=== PATIENT | male | born 1980 | race Hispanic/Latino ===

== ENCOUNTER 2018-03-20 13:06 | Emergency (ER) | payer SELFPAY ==
--- NOTE | 2018-03-20 14:24 | RAD REPORT ---
EXAM DESCRIPTION: RAD - Abdomen Acute Series - 03/20/2018 2:14 pm CLINICAL HISTORY: Abdominal pain FINDINGS: Free air is not seen beneath the diaphragm. The lungs appear clear. The bowel gas pattern is unremarkable. Round calcifications in the pelvis may represent phleboliths
[2018-03-20] MEDS ORDERED: MAGNE/ALUM HYDROXD 30 ML UCUP ONE (14:29)
[2018-03-20] MEDS ORDERED: PANTOPRAZOLE 40MG TABLET PO ONE (14:29)
[2018-03-20] MEDS ORDERED: LIDOCAINE VISCOUS 2% SOLN 15 ML UDC ONE (14:29)
--- NOTE | 2018-03-20 15:46 | EDPHYS ---
Physician Documentation [facility] Name: Francisco Brady Age: 37 yrs Sex: Male : 1980 Arrival Date: 03/20/2018 Time: 13:11 Bed 27 Private MD: None, None ED Physician Mukul Early HPI: 03/20 14:07 This 37 yrs old Male presents to ER via Ambulatory with complaints of snw Shortness Of Breath, Decreased Appetite. 14:07 The patient has shortness of breath at rest. Onset: The symptoms/episode began/occurred snw suddenly, Saturday post heavy drinking over holiday weekend. Duration: The symptoms are continuous. Associated signs and symptoms: Pertinent positives: chest pain, vomiting, Pertinent negatives: hemoptysis, hematemesis, melena. Severity of symptoms: At their worst the symptoms were moderate in the emergency department the symptoms are unchanged. The patient has experienced similar episodes in the past. The patient has not recently seen a physician. pt reports he has been counseled before to decrease ETOH. Dx with Gerd. States this weekend he had a lot of ETOH. Historical: - Allergies: 13:28 No Known Allergies; aj - Home Meds: 13:28 None [Active]; aj - PMHx: 13:28 GERD; aj - PSHx: 13:28 None; aj - Immunization history:: Adult Immunizations up to date. - Social history:: Smoking status: Patient/guardian denies using tobacco, Patient uses alcohol, weekly. patient/guardian reports recent binge of alcohol consumption. - Ebola Screening: : No symptoms or risks identified at this time. ROS: 14:07 Constitutional: Negative for fever, chills, and weight loss, Eyes: Negative for injury, snw pain, redness, and discharge, ENT: Negative for injury, pain, and discharge, Neck: Negative for injury, pain, and swelling, Respiratory: Negative for shortness of breath, cough, wheezing, and pleuritic chest pain, Back: Negative for injury and pain, : Negative for injury, bleeding, discharge, and swelling, MS/Extremity: Negative for injury and deformity, Skin: Negative for injury, rash, and discoloration, Neuro: Negative for headache, weakness, numbness, tingling, and seizure. 14:07 Neck: Negative for injury, pain, and swelling. 14:07 Cardiovascular: Positive for chest pain. 14:07 Abdomen/GI: Positive for abdominal pain, nausea, vomiting, and diarrhea. Exam: 14:07 Constitutional: This is a well developed, well nourished patient who is awake, alert, snw and in no acute distress. Head/Face: Normocephalic, atraumatic. Eyes: Pupils equal round and reactive to light, extra-ocular motions intact. Lids and lashes normal. Conjunctiva and sclera are non-icteric and not injected. Cornea within normal limits. Periorbital areas with no swelling, redness, or edema. ENT: Nares patent. No nasal discharge, no septal abnormalities noted. Tympanic membranes are normal and external auditory canals are clear. Oropharynx with no redness, swelling, or masses, exudates, or evidence of obstruction, uvula midline. Mucous membranes moist. Neck: Trachea midline, no thyromegaly or masses palpated, and no cervical lymphadenopathy. Supple, full range of motion without nuchal rigidity, or vertebral point tenderness. No Meningismus. Chest/axilla: Normal chest wall appearance and motion. Nontender with no deformity. No lesions are appreciated. Cardiovascular: Regular rate and rhythm with a normal S1 and S2. No gallops, murmurs, or rubs. Normal PMI, no JVD. No pulse deficits. Respiratory: Lungs have equal breath sounds bilaterally, clear to auscultation and percussion. No rales, rhonchi or wheezes noted. No increased work of breathing, no retractions or nasal flaring. Abdomen/GI: Soft, non-tender, with normal bowel sounds. No distension or tympany. No guarding or rebound. No evidence of tenderness throughout. Back: No spinal tenderness. No costovertebral tenderness. Full range of motion. Skin: Warm, dry with normal turgor. Normal color with no rashes, no lesions, and no evidence of cellulitis. MS/ Extremity: Pulses equal, no cyanosis. Neurovascular intact. Full, normal range of motion. Neuro: Awake and alert, GCS 15, oriented to person, place, time, and situation. Cranial nerves II-XII grossly intact. Motor strength 5/5 in all extremities. Sensory grossly intact. Cerebellar exam normal. Normal gait. Vital Signs: 13:28 BP 154 / 96; Pulse 86; Resp 18; Temp 98.1; Pulse Ox 100% on R/A; Weight 73.03 kg; aj Height 5 ft. 6 in. (167.64 cm); Pain 5/10; 14:30 BP 142 / 87; Pulse 72; Resp 15; Pulse Ox 100% on R/A; lk1 15:30 BP 139 / 88; Pulse 69; Resp 15; Pulse Ox 100% on R/A; lk1 13:28 Body Mass Index 25.99 (73.03 kg, 167.64 cm) aj MDM: 13:50 Patient medically screened. snw 15:47 Data reviewed: vital signs, nurses notes, lab test result(s), EKG, radiologic studies. snw Counseling: I had a detailed discussion with the patient and/or guardian regarding: the historical points, exam findings, and any diagnostic results supporting the discharge/admit diagnosis, the presence of at least one elevated blood pressure reading (>120/80) during this emergency department visit, radiology results, the need for outpatient follow up, to return to the emergency department if symptoms worsen or persist or if there are any questions or concerns that arise at home. Special discussion: Based on the patient's Hx, exam, and Dx evaluation, there is no indication for emergent surgery or inpatient Tx. It is understood by the patient/guardian that if the Sx's persist or worsen they need to return immediately for re-evaluation. I have referred the patient to see his PCP for further evaluation of high blood pressure. Based on the history and exam findings, there is no indication for further emergent testing or inpatient evaluation. I discussed with the patient/guardian the need to see the glazier structural glass for further evaluation of the symptoms. I discussed with the patient/guardian the need to see the primary care provider for further evaluation of the symptoms. 03/20 13:44 Order name: Abdomen Acute Series XRAY; Complete Time: 14:25 snw 03/20 13:54 Order name: EKG; Complete Time: 13:54 snw 03/20 13:54 Order name: EKG - Nurse/Tech; Complete Time: 14:17 snw Administered Medications: 14:14 Drug: ProTONIX 40 mg Route: PO; lk1 15:00 Follow up: Response: No adverse reaction; Marked relief of symptoms lk1 14:15 Drug: GI Cocktail without - (Maalox Suspension 30 ml, Lidocaine Liquid 2 % 15 lk1 ml) Route: PO; 15:00 Follow up: Response: No adverse reaction; Marked relief of symptoms lk1 Disposition: 22:11 Co-signature as Attending Physician, Mukul Early MD I agree with the assessment and kdr plan of care. Disposition: 03/20/18 15:45 Discharged to Home. Impression: Gastritis, unspecified. - Condition is Stable. - Discharge Instructions: Fat and Cholesterol Restricted Diet, Gastritis, Adult, Hypertension. - Prescriptions for Pepcid 20 mg Oral Tablet - take 1 tablet by ORAL route every 12 hours for 10 days; 20 tablet. - Work release form, Medication Reconciliation Form, Thank You Letter, Antibiotic Education, Prescription Opioid Use form. - Follow up: Private Physician; When: 2 - 3 days; Reason: Recheck today's complaints, Continuance of care, Re-evaluation by your physician. Follow up: Emergency Department; When: As needed; Reason: Worsening of condition. Signatures: Dispatcher [employer] EDMarianne Joiner, RN RN Mukul Edwards MD MD [facility] Eda Marie, TRANSPORTATION MAINTENANCE OPERATOR-C TRANSPORTATION MAINTENANCE OPERATOR-Csnw Nithya Suarez RN RN lk1 Corrections: (The following items were deleted from the chart) 16:04 15:45 03/20/2018 15:45 Discharged to Home. Impression: Gastritis, unspecified. lk1 Condition is Stable. Forms are Medication Reconciliation Form, Thank You Letter, Antibiotic Education, Prescription Opioid Use. Follow up: Private Physician; When: 2 - 3 days; Reason: Recheck today's complaints, Continuance of care, Re-evaluation by your physician. Follow up: Emergency Department; When: As needed; Reason: Worsening of condition. snw
--- NOTE | 2018-03-20 15:46 | ER ---
Nurse's Notes [facility] Name: Francisco Brady Age: 37 yrs Sex: Male : 1980 Arrival Date: 03/20/2018 Time: 13:11 Bed 27 Private MD: None, None Diagnosis: Gastritis, unspecified Presentation: 03/20 13:26 Presenting complaint: Patient states: Epigastric burning and indigestion since aj yesterday. Patient reports he has been seen for this before and DX with GERD. Told to decrease alcohol consumption, patient reports recent binge this weekend. Transition of care: patient was not received from another setting of care. Onset of symptoms was March 19, 2018. Care prior to arrival: None. 13:26 Method Of Arrival: Ambulatory 13:26 Acuity: LIZETH 3 16:04 Risk Assessment: Do you want to hurt yourself or someone else?. Initial Sepsis Screen: lk1 Does the patient meet any 2 criteria? No. Patient's initial sepsis screen is negative. Does the patient have a suspected source of infection? No. Patient's initial sepsis screen is negative. Triage Assessment: 13:28 General: Appears in no apparent distress. comfortable, Behavior is calm, cooperative, aj appropriate for age. Pain: Complains of pain in xyphoid area, mid-sternal area and epigastric area Pain currently is 5 out of 10 on a pain scale. Neuro: Level of Consciousness is awake, alert, obeys commands, Oriented to person, place, time, situation, Appropriate for age. Respiratory: Reports Airway is patent Respiratory effort is even, unlabored, Respiratory pattern is regular, symmetrical, Onset: The symptoms/episode began/occurred gradually, the patient has mild shortness of breath. Derm: Skin is intact, is healthy with good turgor, Skin is pink, warm \T\ dry. normal. Historical: - Allergies: 13:28 No Known Allergies; aj - Home Meds: 13:28 None [Active]; aj - PMHx: 13:28 GERD; aj - PSHx: 13:28 None; aj - Immunization history:: Adult Immunizations up to date. - Social history:: Smoking status: Patient/guardian denies using tobacco, Patient uses alcohol, weekly. patient/guardian reports recent binge of alcohol consumption. - Ebola Screening: : No symptoms or risks identified at this time. Screenin:03 Abuse screen: Denies threats or abuse. Denies injuries from another. Nutritional lk1 screening: No deficits noted. Tuberculosis screening: No symptoms or risk factors identified. Fall Risk None identified. Assessment: 14:00 General: Appears in no apparent distress. Behavior is calm, cooperative, appropriate lk1 for age. Pain: Complains of pain in mid-sternal area and epigastric area Pain currently is 5 out of 10 on a pain scale. Pain: Quality of pain is described as burning. Neuro: Level of Consciousness is awake, alert, obeys commands, Oriented to person, place, time, situation. Cardiovascular: Heart tones S1 S2 present Capillary refill is brisk Patient's skin is warm and dry. Rhythm is regular. Respiratory: Airway is patent Respiratory effort is even, unlabored, Respiratory pattern is regular, symmetrical, Breath sounds are clear bilaterally. GI: No signs and/or symptoms were reported involving the gastrointestinal system. : No signs and/or symptoms were reported regarding the genitourinary system. EENT: No signs and/or symptoms were reported regarding the EENT system. Derm: No signs and/or symptoms reported regarding the dermatologic system. Musculoskeletal: No signs and/or symptoms reported regarding the musculoskeletal system. Vital Signs: 13:28 BP 154 / 96; Pulse 86; Resp 18; Temp 98.1; Pulse Ox 100% on R/A; Weight 73.03 kg; aj Height 5 ft. 6 in. (167.64 cm); Pain 5/10; 14:30 BP 142 / 87; Pulse 72; Resp 15; Pulse Ox 100% on R/A; lk1 15:30 BP 139 / 88; Pulse 69; Resp 15; Pulse Ox 100% on R/A; lk1 13:28 Body Mass Index 25.99 (73.03 kg, 167.64 cm) aj ED Course: 13:11 Patient arrived in ED. mr 13:11 None, None is Private Physician. mr 13:28 Triage completed. aj 13:28 Arm band placed on left wrist. Patient placed in an exam room. aj 13:41 Eda Marie F[facility]-C [facility]. snw 13:41 Mukul Early MD is Attending Physician. snw 14:00 X-ray completed. Patient tolerated procedure well. Patient moved to radiology via tm4 wheelchair. 14:12 Patient moved back from radiology. jb2 14:12 Abdomen Acute Series XRAY In Process Unspecified. EDMS 14:26 Nithya Suarez, RN is Primary Nurse. lk1 15:25 EKG done, by equipment tech. reviewed by Mukul Early MD. tc 16:05 No provider procedures requiring assistance completed. Patient did not have IV access lk1 during this emergency room visit. 16:06 Patient has correct armband on for positive identification. Bed in low position. Call lk1 light in reach. Adult w/ patient. Administered Medications: 14:14 Drug: ProTONIX 40 mg Route: PO; lk1 15:00 Follow up: Response: No adverse reaction; Marked relief of symptoms lk1 14:15 Drug: GI Cocktail without - (Maalox Suspension 30 ml, Lidocaine Liquid 2 % 15 lk1 ml) Route: PO; 15:00 Follow up: Response: No adverse reaction; Marked relief of symptoms lk1 Outcome: 15:45 Discharge ordered by . snw 16:04 Patient left the ED. lk1 16:06 Discharged to home ambulatory. lk1 16:06 Condition: good 16:06 Discharge instructions given to patient, Instructed on discharge instructions, follow up and referral plans. medication usage, safety practices, Demonstrated understanding of instructions, follow-up care, medications, Prescriptions given X 1. Signatures: Dispatcher [employer] EDMS Marianne Zamora, RN RN Eda Galeano, WATER TAXI CAPTAIN-C WATER TAXI CAPTAIN-Csnw Namrata Barber William Helmsse jb2 Carine Flood tm4 Shelby Mendoza, rn resource nurse EKG Ttc Nithya Suarez, RN RN lk1
--- NOTE | 2018-03-21 06:53 | EKG ---
Test Date: 2018-03-20 Test Time: 14:15:31 Portfolio Administrator: JAYSON MEASUREMENT RESULTS: Intervals: Rate: 70 WI: 152 QRSD: 82 QT: 392 QTc: 423 [place]: P: 47 WI: 152 QRS: 56 T: 40 INTERPRETIVE STATEMENTS: Normal sinus rhythm Normal ECG No previous ECG available for comparison Electronically Signed On 03-21-18 06:51:45 CDT by Rex Barajas
== END 2018-03-20 16:04 | disposition home or self-care (01) ==
LOC: ER 13:06
DX: K29.70 Gastritis, unspecified, without bleeding (principal)
CPT/HCPCS: 74022; 93005; 99284

== ENCOUNTER 2018-03-21 13:41 | Emergency (ER) | payer SELFPAY ==
[2018-03-21] MEDS ORDERED: PANTOPRAZOLE 40 MG INJ ONE (16:02)
[2018-03-21] MEDS ORDERED: ONDANSETRON 4 MG/2 ML VIAL ONE (16:02)
[2018-03-21 16:07] LABS: Absolute Lymphocytes (CBC) 1.5 K/uL (0.7-4.9); Absolute Monocytes 0.4 K/uL (0.1-1.3); Absolute Neutrophil 4.7 K/uL (1.8-8.0); Basophils % 0.9 % (0-1.3); Lymphocytes % 21.8 % (15.3-44.8); MCH 31.4 pg (27.0-35.0); MPV 8.7 fL (7.6-11.3); Monocytes % 6.2 % (3.3-12.3); RBC Red Blood Cell Count 5.11 M/uL (4.33-5.43)
[2018-03-21 16:29] LABS: Urine Blood NEGATIVE (NEG); Urine Glucose NEGATIVE (NEG); Urine Protein NEGATIVE (NEG); Urine pH 7.5 (5.0-7.0)
[2018-03-21 16:29] LABS: Potassium 3.6 mEq/L (3.6-5.0)
[2018-03-21 16:35] LABS: Bilirubin Direct 0.2 mg/dL (0-0.2); Magnesium 2.3 mg/dL (1.8-2.5); Protein, Total 8.6 g/dL (6.0-8.3)
[2018-03-21 16:51] LABS: Urine Bacteria <20 /HPF (NONE SEEN); Urine Culture Reflex Order NOT NEEDED; Urine RBC <5 /HPF (NONE SEEN)
--- NOTE | 2018-03-21 17:18 | RAD REPORT ---
EXAM DESCRIPTION: US - Abdomen Exam Limited - 03/21/2018 5:12 pm CLINICAL HISTORY: Abdominal pain. Nausea and vomiting COMPARISON: None. FINDINGS: The gallbladder wall is not thickened. A gallstone is not seen. The biliary tree is normal caliber. IMPRESSION: Unremarkable gallbladder ultrasound.
--- NOTE | 2018-03-21 17:30 | EDPHYS ---
Physician Documentation [facility] Name: Francisco Brady Age: 37 yrs Sex: Male : 1980 Arrival Date: 03/21/2018 Time: 13:45 Bed 7 Private MD: None, None ED Physician Curt Reyes HPI: 03/21 15:40 This 37 yrs old Male presents to ER via Ambulatory with complaints of cp Vomiting, Weakness. 15:40 The patient presents to the emergency department with nausea, that is mild, vomiting, cp that is intermittent. Onset: The symptoms/episode began/occurred 4 day(s) ago. Possible causes: unknown. Associated signs and symptoms: Pertinent positives: anorexia, Pertinent negatives: constipation, fever, GI bleeding. Severity of symptoms: in the emergency department the symptoms are unchanged despite home interventions. Historical: - Allergies: 14:35 No Known Allergies; aj - Home Meds: 14:35 Pepcid Oral [Active]; aj - PMHx: 14:35 GERD; aj - PSHx: 14:35 None; aj - Immunization history:: Adult Immunizations up to date. - Social history:: Smoking status: Patient/guardian denies using tobacco. - Ebola Screening: : No symptoms or risks identified at this time. ROS: 15:43 Constitutional: Negative for body aches, chills, fever, poor PO intake. cp 15:43 Eyes: Negative for injury, pain, redness, and discharge. cp 15:43 ENT: Negative for drainage from ear(s), ear pain, sore throat, difficulty swallowing, difficulty handling secretions. 15:43 Cardiovascular: Positive for chest pain, of the retrosternal, Negative for edema, palpitations. 15:43 Respiratory: Negative for cough, shortness of breath, wheezing. 15:43 Abdomen/GI: Positive for abdominal pain, nausea, vomiting, anorexia, of the epigastric area, Negative for diarrhea, constipation, dysphagia, black/tarry stool, rectal bleeding. 15:43 Back: Negative for pain at rest, pain with movement, radiated pain. 15:43 : Negative for urinary symptoms, flank pain. 15:43 Skin: Negative for cellulitis, rash. 15:43 Neuro: Negative for altered mental status, headache, syncope, near syncope, weakness. 15:43 All other systems are negative. Exam: 15:45 ECG was reviewed by the Attending Physician. cp 15:48 Constitutional: The patient appears in no acute distress, alert, awake, cp non-diaphoretic, non-toxic, well developed, well nourished. 15:48 Head/Face: Normocephalic, atraumatic. cp 15:48 Eyes: Periorbital structures: appear normal, Conjunctiva: normal, no exudate, no injection, Sclera: no appreciated abnormality, Lids and lashes: appear normal, bilaterally. 15:48 ENT: External ear(s): are unremarkable, Nose: is normal, Mouth: is normal, Posterior pharynx: is normal, airway is patent, no erythema, no exudate. 15:48 Neck: ROM/movement: is normal, is supple, without pain, no range of motions limitations, no nuchal rigidity. 15:48 Chest/axilla: Inspection: normal, Palpation: is normal, no crepitus, no tenderness. 15:48 Cardiovascular: Rate: normal, Rhythm: regular, Edema: is not appreciated, JVD: is not appreciated. 15:48 Respiratory: the patient does not display signs of respiratory distress, Respirations: normal, no use of accessory muscles, no retractions, no splinting, no tachypnea, labored breathing, is not present, Breath sounds: are clear throughout, no decreased breath sounds, no stridor, no wheezing. 15:48 Abdomen/GI: Inspection: abdomen appears normal, Bowel sounds: active, all quadrants, Palpation: soft, in all quadrants, mild abdominal tenderness, in the epigastric area, rebound tenderness, is not appreciated, voluntary guarding, is not appreciated, involuntary guarding, is not appreciated. 15:48 Back: pain, is absent, ROM is normal. 15:48 Skin: cellulitis, is not appreciated, no rash present. 15:48 Neuro: Orientation: to person, place \T\ time. Mentation: lucid, able to follow commands, Cerebellar function: is grossly normal, Motor: moves all fours, strength is normal, Sensation: no obvious gross deficits, Gait: is steady, at a normal pace, without difficulty. Vital Signs: 14:35 BP 139 / 81; Pulse 75; Resp 16; Temp 98.3; Pulse Ox 98% on R/A; Weight 72.57 kg; Height aj 5 ft. 6 in. (167.64 cm); Pain 5/10; 16:00 BP 138 / 94; Pulse 65; Resp 16; Pulse Ox 98% on R/A; dh3 16:25 BP 122 / 82; Pulse 69; Resp 15; Pulse Ox 98% on R/A; dh3 14:35 Body Mass Index 25.82 (72.57 kg, 167.64 cm) aj MDM: 15:27 Patient medically screened. cp 16:00 Differential diagnosis: Nonspecific abd pain, gastritis, cholecystitis, pancreatitis, cp appendicitis, diverticulitis, viral gastroenteritis, gastroenteritis. 17:28 Data reviewed: vital signs, nurses notes, lab test result(s), radiologic studies, cp ultrasound, and as a result, I will discharge patient. 17:28 Counseling: I had a detailed discussion with the patient and/or guardian regarding: the cp historical points, exam findings, and any diagnostic results supporting the discharge/admit diagnosis, lab results, radiology results, the need for outpatient follow up, a twister tender paper, to return to the emergency department if symptoms worsen or persist or if there are any questions or concerns that arise at home. Response to treatment: the patient's symptoms have mildly improved after treatment, and as a result, I will discharge patient. Special discussion: Based on the patient's Hx, exam, and Dx evaluation, there is no indication for emergent surgery or inpatient Tx. It is understood by the patient/guardian that if the Sx's persist or worsen they need to return immediately for re-evaluation. 03/21 15:37 Order name: Amylase, Serum; Complete Time: 16:41 cp 03/21 15:37 Order name: Basic Metabolic Panel; Complete Time: 16:41 cp 03/21 16:42 Interpretation: Normal except: CL 99; GFR 89. cp 03/21 15:37 Order name: CBC with Diff; Complete Time: 16:41 cp 03/21 15:37 Order name: Creatinine for Radiology; Complete Time: 16:41 cp 03/21 15:37 Order name: Hepatic Function; Complete Time: 16:41 cp 03/21 17:25 Interpretation: Normal except: SGOT 86; SGPT 115; TP 8.6; GLOB 3.6. cp 03/21 15:37 Order name: Lipase; Complete Time: 16:41 cp 03/21 15:37 Order name: Urine Microscopic Only; Complete Time: 17:25 cp 06/ 15:37 Order name: EKG; Complete Time: 15:38 cp 03/21 15:37 Order name: Troponin I; Complete Time: 16:41 cp 03/21 15:37 Order name: Magnesium; Complete Time: 16:41 cp 03/21 16:03 Order name: Urine Dipstick--Ancillary (enter results); Complete Time: 16:41 bd 03/21 16:42 Order name: US Abdomen Limited: RUQ/epigastric area; Complete Time: 17:25 cp 03/21 15:37 Order name: IV Saline Lock; Complete Time: 16:04 cp 03/21 15:37 Order name: Labs collected and sent; Complete Time: 16:04 cp 03/21 15:37 Order name: Urine Dipstick-Ancillary (obtain specimen); Complete Time: 16:04 cp 03/21 15:37 Order name: EKG - Nurse/Tech; Complete Time: 16:04 cp 03/21 17:27 Order name: PO challenge; Complete Time: 17:58 cp EC:45 Rate is 59 beats/min. Rhythm is regular. IL interval is normal. QRS interval is normal. cp QT interval is normal. No ST changes noted. Interpreted by me. Reviewed by me. Administered Medications: 16:12 Drug: Zofran 4 mg Route: IVP; Site: right antecubital; sg 16:47 Follow up: Response: No adverse reaction sv 16:12 Drug: ProTONIX 40 mg Route: IVP; Site: right antecubital; sg 16:46 Follow up: Response: No adverse reaction sv Disposition: 03/21/18 17:29 Discharged to Home. Impression: Nausea and vomiting, Epigastric abdominal tenderness. - Condition is Stable. - Discharge Instructions: Nausea and Vomiting. - Prescriptions for Carafate 1 gram Oral Tablet - take 1 tablet by ORAL route 4 times per day take on an empty stomach, beginning on waking and last dose at bedtime. dissolve tablet in 8 oz warm water prior to ingestion; 100 tablet. Protonix 40 mg Oral Tablet - take 1 tablet by ORAL route once daily; 30 tablet. promethazine 25 mg Oral Tablet - take 1 tablet by ORAL route every 6 hours As needed; 20 tablet. - Medication Reconciliation Form, Thank You Letter, Antibiotic Education, Prescription Opioid Use form. - Follow up: Hui Moon MD; When: 2 - 3 days; Reason: Recheck today's complaints. - Problem is new. - Symptoms have improved. Addendum: 03/23/2018 13:26 Co-signature as Attending Physician, Eduardo langley Signatures: Dispatcher [employer] EDCaitlyn Bone RN RN sv Gay, Steven RN Marianne Rodriguez RN Eduardo Gorman PA PA cp Starr, Gregory, MD MD gs Corrections: (The following items were deleted from the chart) 03/21 17:59 17:29 03/21/2018 17:29 Discharged to Home. Impression: Nausea and vomiting; Epigastric sv abdominal tenderness. Condition is Stable. Forms are Medication Reconciliation Form, Thank You Letter, Antibiotic Education, Prescription Opioid Use. Follow up: Hui Moon; When: 2 - 3 days; Reason: Recheck today's complaints. Problem is new. Symptoms have improved. 17:59 17:59 03/21/2018 17:29 Discharged to Home. Impression: Nausea and vomiting; Epigastric sv abdominal tenderness. Condition is Stable. Discharge Instructions: Nausea and Vomiting. Prescriptions for Carafate 1 gram Oral Tablet - take 1 tablet by ORAL route 4 times per day take on an empty stomach, beginning on waking and last dose at bedtime. dissolve tablet in 8 oz warm water prior to ingestion; 100 tablet, Protonix 40 mg Oral Tablet - take 1 tablet by ORAL route once daily; 30 tablet, promethazine 25 mg Oral Tablet - take 1 tablet by ORAL route every 6 hours As needed; 20 tablet. and Forms are Medication Reconciliation Form, Thank You Letter, Antibiotic Education, Prescription Opioid Use. Follow up: Hui Moon; When: 2 - 3 days; Reason: Recheck today's complaints. Problem is new. Symptoms have improved. sv
--- NOTE | 2018-03-21 17:30 | ER ---
Nurse's Notes [facility] Name: Francisco Brady Age: 37 yrs Sex: Male : 1980 Arrival Date: 03/21/2018 Time: 13:45 Bed 7 Private MD: None, None Diagnosis: Nausea and vomiting;Epigastric abdominal tenderness Presentation: 03/21 14:34 Presenting complaint: Patient states: Upper abdominal pain and vomiting for 4 days. aj Patient reports intolerance of food. Seen in this ER yesterday and DX with gastritis. Transition of care: patient was not received from another setting of care. Onset of symptoms was March 17, 2018. Risk Assessment: Do you want to hurt yourself or someone else? Patient reports no desire to harm self or others. Care prior to arrival: None. 14:34 Method Of Arrival: Ambulatory 14:34 Acuity: LIZETH 3 aj 16:46 Initial Sepsis Screen: Does the patient meet any 2 criteria? No. Patient's initial sv sepsis screen is negative. Does the patient have a suspected source of infection? No. Patient's initial sepsis screen is negative. Triage Assessment: 14:35 General: Appears in no apparent distress. comfortable, Behavior is calm, cooperative, aj appropriate for age. Pain: Complains of pain in epigastric area, right upper quadrant and left upper quadrant Pain currently is 5 out of 10 on a pain scale. Neuro: Level of Consciousness is awake, alert, obeys commands, Oriented to person, place, time, situation, Appropriate for age. Respiratory: Airway is patent Respiratory effort is even, unlabored, Respiratory pattern is regular, symmetrical. GI: Reports upper abdominal pain, nausea, vomiting. Derm: Skin is intact, is healthy with good turgor, Skin is pink, warm \T\ dry. normal. Historical: - Allergies: 14:35 No Known Allergies; aj - Home Meds: 14:35 Pepcid Oral [Active]; aj - PMHx: 14:35 GERD; aj - PSHx: 14:35 None; aj - Immunization history:: Adult Immunizations up to date. - Social history:: Smoking status: Patient/guardian denies using tobacco. - Ebola Screening: : No symptoms or risks identified at this time. Screenin:42 Abuse screen: Denies threats or abuse. Denies injuries from another. Nutritional sv screening: No deficits noted. Tuberculosis screening: No symptoms or risk factors identified. Fall Risk None identified. Assessment: 15:50 General: Appears in no apparent distress. comfortable, well groomed, Behavior is calm, sv cooperative, appropriate for age. Pain: Complains of pain in epigastric area Pain currently is 5 out of 10 on a pain scale. Quality of pain is described as burning. Neuro: Level of Consciousness is awake, alert, obeys commands, Oriented to person, place, time, situation, Moves all extremities. Full function Gait is steady. Cardiovascular: Patient's skin is warm and dry. Respiratory: Respiratory effort is even, unlabored, Respiratory pattern is regular, symmetrical. GI: Abdomen is flat, Reports epigastric pain, nausea. Derm: Skin is normal. 17:58 Reassessment: Patient appears in no apparent distress at this time. Patient and/or sv family updated on plan of care and expected duration. Pain level reassessed. Patient is alert, oriented x 3, equal unlabored respirations, skin warm/dry/pink. Vital Signs: 14:35 BP 139 / 81; Pulse 75; Resp 16; Temp 98.3; Pulse Ox 98% on R/A; Weight 72.57 kg; Height aj 5 ft. 6 in. (167.64 cm); Pain 5/10; 16:00 BP 138 / 94; Pulse 65; Resp 16; Pulse Ox 98% on R/A; dh3 16:25 BP 122 / 82; Pulse 69; Resp 15; Pulse Ox 98% on R/A; dh3 14:35 Body Mass Index 25.82 (72.57 kg, 167.64 cm) ED Course: 13:45 Patient arrived in ED. sb2 13:46 None, None is Private Physician. sb2 14:35 Triage completed. aj 14:35 Arm band placed on right wrist. Patient placed in waiting room, Patient notified of wait time. 15:18 Caitlyn Cortez, RASHAUN is Primary Nurse. sv 15:27 Eduardo Dwyer PA is PHCP. cp 15:27 Curt Reyes MD is Attending Physician. cp 15:57 EKG done, by geospatial information technologist. reviewed by Eduardo SLOAN. tc 15:58 Initial lab(s) drawn, by nj, sent to lab. Inserted saline lock: 20 gauge in right dh3 antecubital area, using aseptic technique. Blood collected. 16:00 Patient has correct armband on for positive identification. Bed in low position. Call sv light in reach. Pulse ox on. NIBP on. Door closed. Head of bed elevated. 16:04 Urine collected: clean catch specimen, clear. dh3 16:46 Awaiting lab results. sv 17:12 US Abdomen Limited: RUQ/epigastric area In Process Unspecified. EDMS 17:28 Hui Moon MD is Referral Physician. cp 17:58 No provider procedures requiring assistance completed. IV discontinued, intact, sv bleeding controlled, No redness/swelling at site. Pressure dressing applied. Administered Medications: 16:12 Drug: Zofran 4 mg Route: IVP; Site: right antecubital; sg 16:47 Follow up: Response: No adverse reaction sv 16:12 Drug: ProTONIX 40 mg Route: IVP; Site: right antecubital; sg 16:46 Follow up: Response: No adverse reaction sv Outcome: 17:29 Discharge ordered by MD. cp 17:58 Discharged to home ambulatory. sv 17:58 Condition: stable 17:58 Discharge instructions given to patient, Instructed on discharge instructions, follow up and referral plans. no drinking with medication, no driving heavy equipment, medication usage, Demonstrated understanding of instructions, follow-up care, medications, Prescriptions given X 3. 17:59 Patient left the ED. sv Signatures: Dispatcher [employer] EDMN Caitlyn Cortez RN RN sv Gay, Steven, RN RN sg Myers, Amanda, RN RN aj Callis, Tiffany, implant polisher EKG Eduardo Sood PA PA cp Herrera, Deanna [facility] Agustina Cooper 2
--- NOTE | 2018-03-22 06:48 | EKG ---
Test Date: 2018-03-21 Test Time: 15:39:32 Coffee Taster: [place] MEASUREMENT RESULTS: Intervals: Rate: 59 [place]: 162 QRSD: 84 QT: 402 QTc: 397 [place]: P: 41 [place]: 162 QRS: 48 T: 32 INTERPRETIVE STATEMENTS: Sinus bradycardia with sinus arrhythmia Otherwise normal ECG Compared to ECG 03/20/2018 14:15:31 Sinus rhythm no longer present Electronically Signed On 03-22-18 06:47:31 CDT by Rex Barajas
== END 2018-03-21 17:59 | disposition home or self-care (01) ==
LOC: ER 13:41
DX: R10.816 Epigastric abdominal tenderness (principal)
CPT/HCPCS: 36415; 76705; 80048; 80076; 81003; 81015; 82150; 83690; 83735; 84484; 85025; 93005; 96374; 96375; 99284; C9113; J2405

== ENCOUNTER 2018-06-21 12:13 | Emergency (ER) | payer SELFPAY ==
[2018-06-21] MEDS ORDERED: METOCLOPRAMIDE 10 MG/2mL INJ ONE (13:07)
[2018-06-21] MEDS ORDERED: NA CHLORIDE 0.9% 1,000 ML ONE (13:08)
[2018-06-21] MEDS ORDERED: KETOROLAC 30 MG/ML INJ ONE (13:08)
[2018-06-21] MEDS ORDERED: DIPHENHYDRAMINE 50 MG/ML VIAL ONE (13:09)
--- NOTE | 2018-06-21 14:42 | RAD REPORT ---
EXAM DESCRIPTION: CT - Head Brain Wo Cont - 06/21/2018 1:21 pm CLINICAL HISTORY: HEADACHE<Reason For Exam>HEADACHE COMPARISON: No comparisons<Comparisons> TECHNIQUE: Axial 5 mm thick images of the head were obtained without IV contrast. All CT scans are performed using dose optimization technique as appropriate and may include automated exposure control or mA/KV adjustment according to patient size. FINDINGS: No intracranial hemorrhage, mass, edema or shift of mid-line structures. No acute infarcti on changes seen. No abnormal extra-axial fluid collections. Ventricles are normal. Mastoid air cells and visualized portions of the paranasal sinuses are clear. No acute bony findings. IMPRESSION: Negative non-contrast CT head examination.
--- NOTE | 2018-06-21 14:43 | EDPHYS ---
Physician Documentation [facility] Name: Francisco Brady Age: 37 yrs Sex: Male : 1980 Arrival Date: 06/21/2018 Time: 12:19 Bed 13 Private MD: None, None ED Physician Mukul Early HPI: 06/21 12:57 This 37 yrs old Male presents to ER via Ambulatory with complaints of Headache.[facility] 12:57 The patient complains of pain to the right frontal area, right side of the back of jmm head, right temporal area, right pentecostalism and right zygomatic area. Onset: The symptoms/episode began/occurred gradually, 2 month(s) ago. Associated signs and symptoms: Pertinent negatives: fever. This is a 37 year old male with a history of HTN, GERD that presents to the ED with right sided headache beginning approx 2 months ago. Patient states the headache has worsened. Denies fever, denies weakness. . Historical: - Allergies: 12:21 No Known Allergies; la1 - Home Meds: 12:45 Pepcid Oral [Active]; hj - PMHx: 12:21 GERD; Hypertension; la1 - PSHx: 12:45 Unable to obtain; hj - Immunization history:: Adult Immunizations up to date. - Social history:: Smoking status: Patient/guardian denies using tobacco. - Ebola Screening: : No symptoms or risks identified at this time. ROS: 12:57 Constitutional: Negative for fever, chills, and weight loss, Neck: Negative for injury, jmm pain, and swelling, Cardiovascular: Negative for chest pain, palpitations, and edema, Respiratory: Negative for shortness of breath, cough, wheezing, and pleuritic chest pain. 12:57 Neuro: Positive for headache. 12:57 All other systems are negative. Exam: 12:57 Head/Face: atraumatic. Chest/axilla: Normal chest wall appearance and motion. [facility] Cardiovascular: Regular rate and rhythm. No edema appreciated Respiratory: Normal respirations, no respiratory distress appreciated Abdomen/GI: Non distended, soft 12:57 Constitutional: The patient appears in no acute distress, alert, awake. 12:57 Neuro: Orientation: is normal, Mentation: is normal, Memory: is normal, Gait: is steady. 12:57 Psych: Behavior/mood is pleasant, cooperative. Vital Signs: 12:21 BP 140 / 86; Pulse 66; Resp 16; Temp 97.5; Pulse Ox 100% on R/A; Weight 77.11 kg; la1 13:53 BP 140 / 85; Pulse 64; Resp 18; Pulse Ox 100% on R/A; hj 14:57 BP 128 / 75; Pulse 60; Resp 18; Pulse Ox 100% on R/A; hj MDM: 12:53 Patient medically screened. [facility] 14:07 Data reviewed: vital signs, nurses notes, lab test result(s). [facility] 14:41 Data reviewed: radiologic studies, CT scan. Counseling: I had a detailed discussion [facility] with the patient and/or guardian regarding: the historical points, exam findings, and any diagnostic results supporting the discharge/admit diagnosis, the need for outpatient follow up, to return to the emergency department if symptoms worsen or persist or if there are any questions or concerns that arise at home. 14:54 ED course: Patient states headache relieved in the ED. CT normal. I do not currently [facility] suspect SAH or meningitis. Patient advised to follow up with Neuro for further evaluation. Patient understood and agree with the plan of care. . 06/21 12:57 Order name: CT Head Brain wo Cont; Complete Time: 14:54 [facility] 06/21 12:57 Order name: Saline Lock; Complete Time: 13:14 [facility] Administered Medications: 12:57 Drug: NS 0.9% 1000 ml Route: IV; Rate: 1 bolus; Site: left antecubital; 14:17 Follow up: IV Status: Completed infusion; IV Intake: 1000ml 12:57 Drug: Reglan 10 mg Route: IVP; Site: left antecubital; hj 14:17 Follow up: Response: No adverse reaction 12:57 Drug: diphenhydrAMINE 12.5 mg Route: IVP; Site: left antecubital; hj 14:17 Follow up: Response: No adverse reaction 12:57 Drug: Ketorolac 30 mg Route: IVP; Site: left antecubital; hj 14:17 Follow up: Response: No adverse reaction; Pain is decreased hj Disposition: 15:36 Co-signature as Attending Physician, Mukul Early MD I agree with the assessment and kdr plan of care. Disposition: 06/21/18 14:42 Discharged to Home. Impression: Headache. - Condition is Stable. - Discharge Instructions: General Headache Without Cause. - Prescriptions for Fiorinal 50- 325-40 mg Oral Capsule - take 1 capsule by ORAL route every 4 hours As needed - not to exceed 6 capsules per day; 20 capsule. - Medication Reconciliation Form, Thank You Letter, Antibiotic Education, Prescription Opioid Use form. - Follow up: Pedro Barragan MD; When: 2 - 3 days; Reason: Recheck today's complaints, Continuance of care, Re-evaluation by your physician. Signatures: Dispatcher [employer] EDMS Mukul Early MD MD [facility] Barber Wright PA PA jmm Attema, Lee RN RN la1 Jorge Gallegos RN RN hj Corrections: (The following items were deleted from the chart) 14:59 14:42 06/21/2018 14:42 Discharged to Home. Impression: Headache. Condition is Stable. hj Forms are Medication Reconciliation Form, Thank You Letter, Antibiotic Education, Prescription Opioid Use. Follow up: Pedro Barragan; When: 2 - 3 days; Reason: Recheck today's complaints, Continuance of care, Re-evaluation by your physician. kelley
--- NOTE | 2018-06-21 14:43 | ER ---
Nurse's Notes [facility] Name: Francisco Brady Age: 37 yrs Sex: Male : 1980 Arrival Date: 06/21/2018 Time: 12:19 Bed 13 Private MD: None, None Diagnosis: Headache Presentation: 06/21 12:20 Presenting complaint: Patient states: Right sided JAMES for one month, worse with la1 activity. Transition of care: patient was not received from another setting of care. Onset of symptoms. Risk Assessment: Do you want to hurt yourself or someone else? Patient reports no desire to harm self or others. Initial Sepsis Screen: Does the patient meet any 2 criteria? No. Patient's initial sepsis screen is negative. Does the patient have a suspected source of infection? No. Patient's initial sepsis screen is negative. Care prior to arrival: None. 12:20 Method Of Arrival: Ambulatory la1 12:20 Acuity: LIZETH 3 la1 Triage Assessment: 12:21 Headache History: Denies prior headaches. General: Appears in no apparent distress. la1 Behavior is calm, cooperative. Pain: Pain currently is 5 out of 10 on a pain scale. Pain began one month ago Also complains of no other associated symptoms. Neuro: Level of Consciousness is awake, alert, obeys commands, Oriented to person, place, time, situation, Gait is steady, Speech is normal, Facial symmetry appears normal, Pupils are PERRLA. Historical: - Allergies: 12:21 No Known Allergies; la1 - Home Meds: 12:45 Pepcid Oral [Active]; hj - PMHx: 12:21 GERD; Hypertension; la1 - PSHx: 12:45 Unable to obtain; hj - Immunization history:: Adult Immunizations up to date. - Social history:: Smoking status: Patient/guardian denies using tobacco. - Ebola Screening: : No symptoms or risks identified at this time. Screenin:45 Abuse screen: Denies threats or abuse. Denies injuries from another. Nutritional hj screening: No deficits noted. Tuberculosis screening: No symptoms or risk factors identified. Fall Risk None identified. Assessment: 12:45 General: Appears in no apparent distress. uncomfortable, Behavior is calm, cooperative, hj appropriate for age. Pain: Complains of pain in head Pain currently is 5 out of 10 on a pain scale. Neuro: Level of Consciousness is awake, alert, obeys commands, Oriented to person, place, time, situation, Appropriate for age. Cardiovascular: Capillary refill < 3 seconds Patient's skin is warm and dry. Respiratory: Airway is patent Trachea midline Respiratory effort is even, unlabored, Respiratory pattern is regular. GI: No signs and/or symptoms were reported involving the gastrointestinal system. : No signs and/or symptoms were reported regarding the genitourinary system. EENT: No signs and/or symptoms were reported regarding the EENT system. Derm: No signs and/or symptoms reported regarding the dermatologic system. Musculoskeletal: No signs and/or symptoms reported regarding the musculoskeletal system. 13:53 Reassessment: Patient and/or family updated on plan of care and expected duration. Pain hj level reassessed. Patient is alert, oriented x 3, equal unlabored respirations, skin warm/dry/pink. awaiting results and POC;. 14:57 Reassessment: for D/C; instructions given;. hj Vital Signs: 12:21 BP 140 / 86; Pulse 66; Resp 16; Temp 97.5; Pulse Ox 100% on R/A; Weight 77.11 kg; la1 13:53 BP 140 / 85; Pulse 64; Resp 18; Pulse Ox 100% on R/A; hj 14:57 BP 128 / 75; Pulse 60; Resp 18; Pulse Ox 100% on R/A; hj ED Course: 12:19 Patient arrived in ED. mr 12:19 None, None is Private Physician. mr 12:20 Triage completed. la1 12:21 Arm band placed on left wrist. la1 12:23 Inserted saline lock: 22 gauge in right antecubital area, using aseptic technique. Blood collected. 12:44 Barber Wright PA is PHCP. [facility] 12:44 Mukul Early MD is Attending Physician. jmm 12:45 Patient has correct armband on for positive identification. Bed in low position. Call light in reach. Side rails up X 1. Adult w/ patient. 12:50 Jorge Gallegos, RASHAUN is Primary Nurse. 13:27 CT Head Brain wo Cont In Process Unspecified. EDMS 14:42 Pedro Barragan MD is Referral Physician. [facility] 14:57 No provider procedures requiring assistance completed. IV discontinued, intact, hj bleeding controlled, No redness/swelling at site. Pressure dressing applied. Administered Medications: 12:57 Drug: NS 0.9% 1000 ml Route: IV; Rate: 1 bolus; Site: left antecubital; hj 14:17 Follow up: IV Status: Completed infusion; IV Intake: 1000ml hj 12:57 Drug: Reglan 10 mg Route: IVP; Site: left antecubital; hj 14:17 Follow up: Response: No adverse reaction hj 12:57 Drug: diphenhydrAMINE 12.5 mg Route: IVP; Site: left antecubital; hj 14:17 Follow up: Response: No adverse reaction hj 12:57 Drug: Ketorolac 30 mg Route: IVP; Site: left antecubital; hj 14:17 Follow up: Response: No adverse reaction; Pain is decreased hj Intake: 14:17 IV: 1000ml; Total: 1000ml. Outcome: 14:42 Discharge ordered by . kelley 14:58 Discharged to home ambulatory. 14:58 Condition: stable 14:58 Discharge instructions given to patient, Instructed on discharge instructions, follow up and referral plans. medication usage, Demonstrated understanding of instructions, follow-up care, medications, Prescriptions given X 1. 14:59 Patient left the ED. Signatures: Dispatcher [employer] EDMS Barber Wright PA PA jmm Rivera, Maria mr Attema, Lee, RN RN la1 Jorge Gallegos RN RN hj
== END 2018-06-21 14:59 | disposition home or self-care (01) ==
LOC: ER 12:13
DX: R51 Headache (principal); I10 Essential (primary) hypertension
CPT/HCPCS: 70450; 96361; 96374; 96375; 99284; J2765; J7030

== ENCOUNTER 2018-07-07 12:06 | Emergency (ER) | payer SELFPAY ==
[2018-07-07] MEDS ORDERED: NA CHLORIDE 0.9% 1,000 ML ONE ×2 (12:44→13:30)
[2018-07-07] MEDS ORDERED: PANTOPRAZOLE 40 MG INJ ONE (12:44)
--- NOTE | 2018-07-07 12:53 | RAD REPORT ---
EXAM DESCRIPTION: US - Abdomen Exam Limited - 07/07/2018 12:47 pm CLINICAL HISTORY: ABD PAIN COMPARISON: Abdomen Exam Limited dated 03/21/2018 FINDINGS: The gallbladder demonstrates no gallstones. No pericholecystic fluid or gallbladder wall t hickening. The common bile duct is normal measuring 4 mm. The liver demonstrates no findings of intrahepatic biliary dilatation. IMPRESSION: Unremarkable examination.
[2018-07-07 12:58] LABS: Absolute Lymphocytes (CBC) 1.7 K/uL (0.7-4.9); Absolute Monocytes 0.3 K/uL (0.1-1.3); Absolute Neutrophil 2.8 K/uL (1.8-8.0); Basophils % 1.5 % (0-1.3); Eosinophils % 1.9 % (0-4.4); Hematocrit 46.8 % (39.6-49.0); Lymphocytes % 34.4 % (15.3-44.8); MCH 32.1 pg (27.0-35.0); MCV 92.8 fL (80-100); MPV 9.2 fL (7.6-11.3); Monocytes % 5.6 % (3.3-12.3); RBC Red Blood Cell Count 5.04 M/uL (4.33-5.43)
[2018-07-07 13:39] LABS: Albumin 4.6 g/dL (3.4-5.0); Bilirubin Direct 0.1 mg/dL (0-0.2); Bilirubin Total 0.4 mg/dL (0.2-1.0); Potassium 3.8 mmol/L (3.5-5.1); Protein, Total 8.3 g/dL (6.4-8.2)
[2018-07-07 13:59] LABS: Urine Blood NEGATIVE (NEG); Urine Glucose NEGATIVE (NEG); Urine Protein NEGATIVE (NEG)
--- NOTE | 2018-07-07 14:01 | EDPHYS ---
Physician Documentation [facility] Name: Francisco Brady Age: 37 yrs Sex: Male : 1980 Arrival Date: 07/07/2018 Time: 12:08 Bed 6 Private MD: None, None ED Physician Eduardo Smith HPI: 07/07 13:19 This 37 yrs old Male presents to ER via Ambulatory with complaints of kb Headache, Flank Pain, Vomiting. 13:19 The patient presents with abdominal pain in the upper abdomen. Onset: The kb symptoms/episode began/occurred 2 week(s) ago. The symptoms do not radiate. Associated signs and symptoms: Pertinent positives: nausea and vomiting. The symptoms are described as constant. Modifying factors: The symptoms are alleviated by nothing, the symptoms are aggravated by nothing. Severity of pain: At its worst the pain was moderate in the emergency department the pain is unchanged. The patient has not experienced similar symptoms in the past. The patient has not recently seen a physician. Pt reports headache and dizziness for a month, abd pain for 2 weeks, n/v today. Historical: - Allergies: 12:12 No Known Allergies; sg - Home Meds: 12:12 Pepcid Oral [Active]; sg 12:25 omeprazole 40 mg Oral cpDR 1 cap once daily [Active]; Flagyl 500 mg Oral tab 1 tab 2 iw times per day [Active]; amoxicillin 500 mg Oral cap 1 cap every 12 hours [Active]; - PMHx: 12:12 GERD; Hypertension; sg - PSHx: 12:25 None; iw - Immunization history:: Adult Immunizations not up to date. - Social history:: Smoking status: Patient/guardian denies using tobacco. - Ebola Screening: : Patient negative for fever greater than or equal to 101.5 degrees Fahrenheit, and additional compatible Ebola Virus Disease symptoms Patient denies exposure to infectious person Patient denies travel to an Ebola-affected area in the 21 days before illness onset No symptoms or risks identified at this time. ROS: 13:18 Constitutional: Negative for fever, chills, and weight loss, ENT: Negative for injury, kb pain, and discharge, Neck: Negative for injury, pain, and swelling, Cardiovascular: Negative for chest pain, palpitations, and edema, Respiratory: Negative for shortness of breath, cough, wheezing, and pleuritic chest pain, Back: Negative for injury and pain, : Negative for injury, bleeding, discharge, and swelling, MS/Extremity: Negative for injury and deformity, Skin: Negative for injury, rash, and discoloration. 13:18 Abdomen/GI: Positive for abdominal pain, nausea and vomiting, Negative for diarrhea, constipation, abdominal cramps, abdominal distension, anorexia. 13:18 Neuro: Positive for dizziness, headache. Exam: 13:18 Constitutional: This is a well developed, well nourished patient who is awake, alert, kb and in no acute distress. Head/Face: Normocephalic, atraumatic. Chest/axilla: Normal chest wall appearance and motion. Nontender with no deformity. No lesions are appreciated. Cardiovascular: Regular rate and rhythm with a normal S1 and S2. No gallops, murmurs, or rubs. Normal PMI, no JVD. No pulse deficits. Respiratory: Lungs have equal breath sounds bilaterally, clear to auscultation and percussion. No rales, rhonchi or wheezes noted. No increased work of breathing, no retractions or nasal flaring. Back: No spinal tenderness. No costovertebral tenderness. Full range of motion. Skin: Warm, dry with normal turgor. Normal color with no rashes, no lesions, and no evidence of cellulitis. MS/ Extremity: Pulses equal, no cyanosis. Neurovascular intact. Full, normal range of motion. Neuro: Awake and alert, GCS 15, oriented to person, place, time, and situation. Cranial nerves II-XII grossly intact. Motor strength 5/5 in all extremities. Sensory grossly intact. Cerebellar exam normal. Normal gait. 13:18 Abdomen/GI: Inspection: abdomen appears normal, Bowel sounds: normal, in all quadrants, Palpation: soft, in all quadrants, mild abdominal tenderness, in the left upper quadrant, moderate abdominal tenderness, in the right upper quadrant. Vital Signs: 12:18 BP 137 / 79; Pulse 55; Resp 16; Temp 97.4(TE); Pulse Ox 100% on R/A; Pain 3/10; iw 12:22 BP 148 / 94 LA Supine (auto/reg); Pulse 63 RA; em1 12:24 BP 127 / 82 LA Sitting (auto/); Pulse 56 RA; em1 12:26 BP 128 / 78 LA Standing (auto/); Pulse 60 RA; em1 13:15 BP 128 / 74; Pulse 57; Resp 16; Pulse Ox 99% on R/A; sv 13:52 BP 138 / 83; Pulse 56; Resp 18; Pulse Ox 100% ; sv MDM: 12:19 Patient medically screened. kb 13:18 Data reviewed: vital signs, nurses notes. Data interpreted: Pulse oximetry: on room air kb is 99 %. Interpretation: normal. 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 07/07 12:28 Order name: Amylase, Serum; Complete Time: 13:40 kb 07/07 12:28 Order name: Basic Metabolic Panel; Complete Time: 13:40 kb 07/07 12:28 Order name: CBC with Diff; Complete Time: 13:16 kb 07/07 12:28 Order name: Hepatic Function; Complete Time: 13:40 kb 07/07 12:28 Order name: Lipase; Complete Time: 13:40 kb 07/07 13:01 Order name: Urine Dipstick--Ancillary (enter results); Complete Time: 14:01 bd 07/07 12:28 Order name: IV Saline Lock; Complete Time: 12:34 kb 07/07 12:28 Order name: Labs collected and sent; Complete Time: 12:34 kb 07/07 12:28 Order name: Urine Dipstick-Ancillary (obtain specimen); Complete Time: 13:00 kb 07/07 12:28 Order name: US Abdomen Limited; Complete Time: 13:16 kb 07/07 12:29 Order name: Orthostatics; Complete Time: 12:34 kb 07/07 13:40 Order name: PO challenge; Complete Time: 13:45 kb Administered Medications: 13:00 Drug: NS 0.9% 1000 ml Route: IV; Rate: 1000 ml; Site: right antecubital; ss 14:06 Follow up: IV Status: Completed infusion; IV Intake: 1000ml ss 13:00 Drug: ProTONIX 40 mg Route: IVP; Site: right antecubital; ss 13:43 Follow up: Response: No adverse reaction sv Disposition: 14:51 Co-signature as Attending Physician, Eduardo Smith MD I agree with the assessment and jolie plan of care. Disposition: 07/07/18 14:01 Discharged to Home. Impression: Upper abdominal pain, unspecified. - Condition is Stable. - Discharge Instructions: Abdominal Pain, Adult, [id number]. - Prescriptions for Bentyl 20 mg Oral Tablet - take 1 tablet by ORAL route every 6 hours As needed; 20 tablet. Zofran 4 mg Oral Tablet - take 1 tablet by ORAL route every 6 hours As needed; 20 tablet. - Medication Reconciliation Form, Thank You Letter, Antibiotic Education, Prescription Opioid Use form. - Follow up: Emergency Department; When: As needed; Reason: Worsening of condition. Follow up: Private Physician; When: 2 - 3 days; Reason: Recheck today's complaints, Continuance of care, Re-evaluation by your physician. Signatures: Dispatcher [employer] EDMS Maryjo Nunez, IRONING WORKER-C IRONING WORKER-Ckb Charly Miller, Eduardo Hernandez RN, MD MD cha Williams, Irene, RASHAUN RODNEY Nathalie Frye RN RN ss Verde, Stephanie RN sv Corrections: (The following items were deleted from the chart) 14:07 14:01 07/07/2018 14:01 Discharged to Home. Impression: Upper abdominal pain, ss unspecified. Condition is Stable. Forms are Medication Reconciliation Form, Thank You Letter, Antibiotic Education, Prescription Opioid Use. Follow up: Emergency Department; When: As needed; Reason: Worsening of condition. Follow up: Private Physician; When: 2 - 3 days; Reason: Recheck today's complaints, Continuance of care, Re-evaluation by your physician. kb
--- NOTE | 2018-07-07 14:01 | ER ---
Nurse's Notes [facility] Name: Francisco Brady Age: 37 yrs Sex: Male : 1980 Arrival Date: 07/07/2018 Time: 12:08 Bed 6 Private MD: None, None Diagnosis: Upper abdominal pain, unspecified Presentation: 07/07 12:18 Presenting complaint: Patient states: has not been eating well X 1 month, went to urgent care Saturday and was put on amoxicillin and Flagyl for gastritis and ulcers, today he started vomiting and having dizziness, also RUQ pain today, also has headache when he walks. Transition of care: patient was not received from another setting of care. Onset of symptoms was July 07, 2018. Risk Assessment: Do you want to hurt yourself or someone else? Patient reports no desire to harm self or others. Initial Sepsis Screen: Does the patient meet any 2 criteria? No. Patient's initial sepsis screen is negative. Does the patient have a suspected source of infection? No. Patient's initial sepsis screen is negative. Care prior to arrival: None. 12:18 Method Of Arrival: Ambulatory iw 12:18 Acuity: LIZETH 3 iw Historical: - Allergies: 12:12 No Known Allergies; sg - Home Meds: 12:12 Pepcid Oral [Active]; sg 12:25 omeprazole 40 mg Oral cpDR 1 cap once daily [Active]; Flagyl 500 mg Oral tab 1 tab 2 iw times per day [Active]; amoxicillin 500 mg Oral cap 1 cap every 12 hours [Active]; - PMHx: 12:12 GERD; Hypertension; sg - PSHx: 12:25 None; iw - Immunization history:: Adult Immunizations not up to date. - Social history:: Smoking status: Patient/guardian denies using tobacco. - Ebola Screening: : Patient negative for fever greater than or equal to 101.5 degrees Fahrenheit, and additional compatible Ebola Virus Disease symptoms Patient denies exposure to infectious person Patient denies travel to an Ebola-affected area in the 21 days before illness onset No symptoms or risks identified at this time. Screenin:19 Abuse screen: Denies threats or abuse. Denies injuries from another. Nutritional sv screening: No deficits noted. Tuberculosis screening: No symptoms or risk factors identified. Fall Risk None identified. Assessment: 12:22 General: Appears in no apparent distress. uncomfortable, well developed, Behavior is sv calm, cooperative, appropriate for age. Pain: Complains of pain in right upper quadrant and headache Pain began headache started about a month ago and the RUQ pain started today. Neuro: Level of Consciousness is awake, alert, obeys commands, Oriented to person, place, time, situation, Moves all extremities. Full function Gait is steady, Reports dizziness. Respiratory: Respiratory effort is even, unlabored, Respiratory pattern is regular, symmetrical. GI: Abdomen is flat, Abd is soft X 4 quads Abd is non tender in left upper quadrant, right lower quadrant and left lower quadrant Abdomen is tender to palpation in right upper quadrant Reports nausea. Derm: Skin is pink, warm \T\ dry. 13:45 Reassessment: Patient appears in no apparent distress at this time. No changes from sv previously documented assessment. Patient and/or family updated on plan of care and expected duration. Pain level reassessed. Patient is alert, oriented x 3, equal unlabored respirations, skin warm/dry/pink. 14:07 Reassessment: Patient appears in no apparent distress at this time. Patient and/or ss family updated on plan of care and expected duration. Pain level reassessed. Patient is alert, oriented x 3, equal unlabored respirations, skin warm/dry/pink. Patient denies pain at this time. Patient states feeling better. Patient states symptoms have improved. Vital Signs: 12:18 BP 137 / 79; Pulse 55; Resp 16; Temp 97.4(TE); Pulse Ox 100% on R/A; Pain 3/10; iw 12:22 BP 148 / 94 LA Supine (auto/reg); Pulse 63 RA; em1 12:24 BP 127 / 82 LA Sitting (auto/); Pulse 56 RA; em1 12:26 BP 128 / 78 LA Standing (auto/); Pulse 60 RA; em1 13:15 BP 128 / 74; Pulse 57; Resp 16; Pulse Ox 99% on R/A; sv 13:52 BP 138 / 83; Pulse 56; Resp 18; Pulse Ox 100% ; sv ED Course: 12:08 Patient arrived in ED. sb2 12:09 None, None is Private Physician. sb2 12:11 Arm band placed on. sg 12:18 Caitlyn Cortez, RASHAUN is Primary Nurse. sv 12:19 Maryjo Nunez FNP-C is PHCP. kb 12:19 Eduardo Smith MD is Attending Physician. kb 12:19 Patient has correct armband on for positive identification. Door closed. Head of bed sv elevated. 12:23 Triage completed. iw 12:31 Inserted saline lock: 20 gauge in right antecubital area, using aseptic technique. ss Blood collected. 12:47 US Abdomen Limited In Process Unspecified. EDMS 12:48 Patient taken to ultrasound. aa4 13:01 Awaiting lab results. sv 14:07 No provider procedures requiring assistance completed. IV discontinued, intact, ss bleeding controlled, No redness/swelling at site. Pressure dressing applied. Administered Medications: 13:00 Drug: NS 0.9% 1000 ml Route: IV; Rate: 1000 ml; Site: right antecubital; ss 14:06 Follow up: IV Status: Completed infusion; IV Intake: 1000ml ss 13:00 Drug: ProTONIX 40 mg Route: IVP; Site: right antecubital; ss 13:43 Follow up: Response: No adverse reaction sv Intake: 14:06 IV: 1000ml; Total: 1000ml. ss Outcome: 14:01 Discharge ordered by . kb 14:07 Discharged to home ambulatory. ss 14:07 Condition: good 14:07 Discharge instructions given to patient, Instructed on discharge instructions, follow up and referral plans. medication usage, Demonstrated understanding of instructions, follow-up care, medications, Prescriptions given X 2. 14:07 Patient left the ED. ss Signatures: Dispatcher [employer] EDTN Maryjo Nunez FNP-C FNP-Ckb Verde, Stephanie, RN RN sv Gay, Steven, RN Lexi Perera, RN Marianne Sheikh4 En Velasquez1 Nathalie Frye RN RN Agustina Cooper sb2
== END 2018-07-07 14:07 | disposition home or self-care (01) ==
LOC: ER 12:06
DX: R10.10 Upper abdominal pain, unspecified (principal); K21.9 Gastro-esophageal reflux disease without esophagitis; I10 Essential (primary) hypertension
CPT/HCPCS: 36415; 76705; 80048; 80076; 81003; 82150; 83690; 85025; 96361; 96374; 99284; C9113; J7030

== ENCOUNTER 2022-01-30 13:30 | Emergency (ER) | payer BC, SELFPAY ==
--- OUTSIDE RECORDS SUMMARY | 2022-01-30 13:33 | XMS REPORT | Continuity of Care Document ---
:1980 Author Organization [facility] t Address [address] [place] [address] Care Team Providers Name Role Phone Vish ASENCIO Primary Care Physician Unavailable RADIOLOGY Attending Clinician Unavailable Radiology Attending Clinician Unavailable Zeeshan RODNEY, T Attending Clinician Unavailable Vish Asencio Attending Clinician Valentine ASSET ACCOUNTANT Attending Clinician Lab, Fam Pob I Attending Clinician Unavailable Anene ASSET ACCOUNTANT Attending Clinician ANENE Attending Clinician Unavailable Doctor Unassigned, Name Attending Clinician Unavailable Adrianne POLLARD Admitting Clinician Unavailable Payers Payer Name Policy Type Policy Number Effective Date Expiration Date S [facility] [id number] 2021 00:00:00 Problems This patient has no known problems. Allergies, Adverse Reactions, Alerts Allergy Allergy Status Severity Reaction(s) Onset Inactive Treating Comm ents Source Name Type Date Date Clinician NO KNOWN Drug Active Univers ALLERGIE Class ity of [facility] Social History Social Habit Start Date Stop Date Quantity Comments Source Sex Assigned At [birth year] [facility] 00:00:00 00:00:00 [facility] Smoking Status Start Date Stop Date Source Unknown if ever smoked [facility] Medications This patient has no known medications. Procedures This patient has no known procedures. Encounters Start End Encounter Admission Attending Care Care Encounter Source Date/Time Date/Time Type Type Clinicians Facility Department ID 2022-02-01 2022-02-01 Outpatient R RADIOLOGY [facility] [id number] Univers 16:30:00 16:30:00 [id number] ity of [facility] 2022-02-01 2022-02-01 Outpatient R RADIOLOGY [facility] [id number] Univers 00:00:00 00:00:00 ity of [facility] 2022-01-24 2022-01-24 Outpatient R RADIOLOGY [facility] [id number] Univers 15:42:24 23:59:00 ity of [facility] 2022-01-24 2022-01-24 Hospital Radiology [facility] [id number] Univers 15:30:00 23:59:00 Encounter [place] [id number] ity [facility] [id number] [facility] [phone] [place] [id number] [facility] 2022-01-24 2022-01-24 Outpatient R RADIOLOGY [facility] [id number] Univers 16:00:00 16:00:00 [id number] ity [facility] 2020-05-25 2020-05-25 Letter VICKY Byers [id number] Univers 00:00:00 00:00:00 (Out) An VANG [id number] it y [facility] [id number] [place] [phone] [address] 2020-05-25 2020-05-25 Telephone VICKY Asencio [id number] Univers 00:00:00 00:00:00 Rahat VANG [id number] it y [facility] [id number] [place] [phone] [address] 2020-05-24 2020-05-24 Telephone Stark [id number] Univers 00:00:00 00:00:[id number] [facility] [id number] [place] [phone] [address] 2020-05-23 2020-05-23 Laboratory Lab, Adc Fam Pob I [facility] [id number] Univers 12:55:16 13:15:16 Only Shan Da Silva [id number] ity of [place] [id number] [place] Professio [phone] [facility] [address] 2020-05-23 2020-05-23 Outpatient R TOMASA [facility] [id number] 124 [facility] 11:40:00 11:40:00 SHAN daniely of [facility] 2020-05-23 2020-05-23 Letter Doctor VICKY [id number] Univers 00:00:00 00:00:00 (Out) Unassigned, CIERA [id number] ity of [place] [facility] [id number] [place] [phone] [facility] [address] Results This patient has no known results.
--- NOTE | 2022-01-30 15:56 | RAD REPORT ---
EXAM DESCRIPTION: RAD - Chest Single View - 01/30/2022 3:41 pm CLINICAL HISTORY: CHEST PAIN COMPARISON: PA chest 03/20/2018 TECHNIQUE: AP portable chest image was obtained 01/30/2022 3:41 pm . FINDINGS: Lungs are clear. Heart and vasculature are normal. No measurable pleural effusion and no p neumothorax. No acute bony abnormality seen. No acute aortic findings suspected. IMPRESSION: No acute cardiopulmonary process. No significant change from comparison study.
[2022-01-30] MEDS ORDERED: FAMOTIDINE 20 MG/2 ML VIAL IV ONE (17:24)
[2022-01-30 17:31] LABS: Absolute Lymphocytes (CBC) 2.1 K/uL (0.7-4.9); Hematocrit 44.2 % (39.6-49.0); Lymphocytes % 31.1 % (15.3-44.8); MPV 8.7 fL (7.6-11.3); RBC Red Blood Cell Count 4.78 M/uL (4.33-5.43)
[2022-01-30 17:50] LABS: ALT/SGPT 61 U/L (12-78); AST/SGOT 25 U/L (15-37); Albumin 4.5 g/dL (3.4-5.0); Alkaline Phosphatase 76 U/L (45-117); BUN Blood Urea Nitrogen 11 mg/dL (7-18); Bicarbonate 27 mmol/L (21-32); Bilirubin Direct 0.2 mg/dL (0-0.2); Bilirubin Total 0.7 mg/dL (0.2-1.0); Glucose Level 90 mg/dL (74-106); Lipase 124 U/L (73-393); Potassium 4.1 mmol/L (3.5-5.1); Protein, Total 8.4 g/dL (6.4-8.2); Sodium Level 139 mmol/L (136-145)
[2022-01-30 18:07] LABS: Troponin High Sensitivity < 3.0 pg/mL (<58.9)
--- NOTE | 2022-01-30 19:41 | RAD REPORT ---
EXAM DESCRIPTION: CT - Abdomen Pelvis W Contrast - 01/30/2022 7:34 pm CLINICAL HISTORY: Abdominal pain, acute, nonlocalized COMPARISON: No comparisons TECHNIQUE: Biphasic, helical CT imaging of the abdomen and pelvis was performed following 100 ml non -ionic IV contrast. No oral contrast administered. All CT scans are performed using dose optimization technique as appropriate and may include automated exposure control or mA/KV adjustment according to patient size. FINDINGS: No suspicious findings in the lung bases. The liver, spleen, and pancreas show no focal findings. Liver shows mild diffuse fatty infiltration. No portal vein abnormality. Gallbladder and biliary tree are also without suspicious finding. Symmetric renal function is seen with no hydronephrosis or suspicious renal mass. No pyelonephritis o r acute parenchymal process. No bladder abnormalities. No adrenal abnormalities. No dilated bowel loops or bowel wall thickening. Appendix is normal. No free air, free fluid or infla mmatory stranding. No mass or bulky lymphadenopathy. Very minimal fat only umbilical hernia is prese nt 10 mm in size. No suspicious bony findings. IMPRESSION: Contrast enhanced CT abdomen and pelvis showing no significant or suspicious finding.
--- NOTE | 2022-01-30 19:59 | EDPHYS ---
Physician Documentation [facility] Name: Francisco Miguel Age: 41 yrs Sex: Male : 1980 Arrival Date: 01/30/2022 Time: 13:36 Bed 23 Private MD: DAYAN Physician Eduardo Smith HPI: 01/30 14:20 This 41 yrs old Male presents to ER via Ambulatory with complaints of Chest pm1 Pain, Nausea. 14:20 The patient or guardian reports chest pain that is located primarily in the epigastric pm1 area. Onset: 2 day(s) ago. The pain does not radiate. Associated signs and symptoms: The patient has no apparent associated signs or symptoms, Pertinent negatives: nausea, shortness of breath, vomiting. The chest pain is described as burning. Duration: The patient or guardian reports a single episode, that is still ongoing. Modifying factors: the symptoms are aggravated by Spicy food. Severity of pain: in the emergency department the pain is actually worse. The patient has experienced similar episodes in the past, several times. The patient has not recently seen a physician. Historical: - Allergies: 14:14 No Known Allergies; ap3 - Home Meds: 14:14 meloxicam oral [Active]; ap3 - PMHx: 14:14 GERD; Hypertension; ap3 - Immunization history:: Client reports having NOT received the Covid vaccine. Flu vaccine is not up to date. - Social history:: Smoking status: Patient denies any tobacco usage or history of. ROS: 14:20 Constitutional: Negative for fever, chills, and weight loss, Cardiovascular: Negative pm1 for chest pain, palpitations, and edema, Respiratory: Negative for shortness of breath, cough, wheezing, and pleuritic chest pain. 14:20 Back: Negative for injury and pain, MS/Extremity: Negative for injury and deformity, Skin: Negative for injury, rash, and discoloration, Neuro: Negative for headache, weakness, numbness, tingling, and seizure. 14:20 Abdomen/GI: Positive for abdominal pain, of the epigastric area. 14:20 All other systems are negative. Exam: 14:20 Constitutional: This is a well developed, well nourished patient who is awake, alert, pm1 and in no acute distress. Head/Face: Normocephalic, atraumatic. 14:20 Back: No spinal tenderness. No costovertebral tenderness. Full range of motion. Skin: Warm, dry with normal turgor. Normal color with no rashes, no lesions, and no evidence of cellulitis. MS/ Extremity: Pulses equal, no cyanosis. Neurovascular intact. Full, normal range of motion. 14:20 Chest/axilla: Exam negative for acute changes, Inspection: normal. 14:20 Cardiovascular: Exam negative for acute changes. 14:20 Respiratory: Exam negative for acute changes, respiratory distress, shortness of breath, Breath sounds: are clear throughout. 14:20 Abdomen/GI: Inspection: abdomen appears normal, Palpation: soft, in all quadrants, mild abdominal tenderness, in the epigastric area. 14:20 Neuro: Exam negative for acute changes, Orientation: is normal, Mentation: is normal, Motor: moves all fours. Vital Signs: 14:12 BP 145 / 86; Pulse 75; Temp 98.7; Pulse Ox 100% ; Weight 83.91 kg; Height 5 ft. 10 in. ap3 (177.80 cm); 17:23 BP 140 / 84; Pulse 69; Resp 17; Pulse Ox 100% on R/A; Pain 4/10; ab2 18:28 BP 138 / 83; Pulse 72; Resp 17; Pulse Ox 99% on R/A; ab2 19:17 BP 129 / 85; Pulse 79; Resp 17; Pulse Ox 100% on R/A; ab2 20:09 BP 122 / 79; Pulse 69; Resp 17; Pulse Ox 100% on R/A; ab2 14:12 Body Mass Index 26.54 (83.91 kg, 177.80 cm) ap3 MDM: 14:24 Patient medically screened. pm1 19:57 Data reviewed: vital signs. Data interpreted: Pulse oximetry: on room air is 100 %. pm1 Interpretation: normal. Counseling: I had a detailed discussion with the patient and/or guardian regarding: the historical points, exam findings, and any diagnostic results supporting the discharge/admit diagnosis, lab results, radiology results, the need for outpatient follow up, to return to the emergency department if symptoms worsen or persist or if there are any questions or concerns that arise at home. 01/30 14:18 Order name: Basic Metabolic Panel; Complete Time: 18:13 pm1 01/30 14:18 Order name: CBC with Diff; Complete Time: 18:00 pm1 01/30 14:18 Order name: LFT's; Complete Time: 18:13 pm1 01/30 14:18 Order name: Troponin HS; Complete Time: 18:13 pm1 01/30 14:18 Order name: XRAY Chest (1 view); Complete Time: 16:03 pm1 01/30 14:18 Order name: Lipase; Complete Time: 18:13 pm1 01/30 14:18 Order name: EKG; Complete Time: 14:19 pm1 01/30 14:18 Order name: Cardiac monitoring; Complete Time: 17:23 pm1 01/30 14:18 Order name: EKG - Nurse/Tech; Complete Time: 17:23 pm1 01/30 14:18 Order name: IV Saline Lock; Complete Time: 17:23 pm1 01/30 19:26 Order name: CT Abd/Pelvis - IV Contrast Only; Complete Time: 19:49 ab2 01/30 14:18 Order name: Labs collected and sent; Complete Time: 17:23 pm1 01/30 14:18 Order name: O2 Per Protocol; Complete Time: 17:23 pm1 01/30 14:18 Order name: O2 Sat Monitoring; Complete Time: 17:23 pm1 Administered Medications: 17:22 Drug: Pepcid (famotidine) 20 mg Route: IVP; Site: right antecubital; ab2 19:18 Follow up: Response: No adverse reaction ab2 20:08 Drug: GI Cocktail without - (Maalox Suspension 30 ml, Lidocaine Liquid 2 % 15 ab2 ml) Route: PO; 20:09 Follow up: Response: No adverse reaction ab2 Disposition Summary: 01/30/22 19:58 Discharge Ordered Location: Home pm1 Problem: new pm1 Symptoms: have improved pm1 Condition: Stable pm1 Diagnosis - Abdominal pain, unspecified pm1 Followup: pm1 - With: Emergency Department - When: As needed - Reason: Worsening of condition Followup: pm1 - With: Private Physician - When: 2 - 3 days - Reason: Recheck today's complaints, Continuance of care, Re-evaluation by your physician Discharge Instructions: - Discharge Summary Sheet pm1 - Abdominal Pain, Adult pm1 Forms: - Medication Reconciliation Form pm1 - Thank You Letter pm1 - Antibiotic Education pm1 - Prescription Opioid Use pm1 Prescriptions: - Pepcid 20 mg Oral Tablet - take 1 tablet by ORAL route every 12 hours for 10 days; 20 tablet; Refills: 0, pm1 Product Selection Permitted - dicyclomine 20 mg Oral Tablet - take 1 tablet by ORAL route 4 times per day As needed; 20 tablet; Refills: 0, pm1 Product Selection Permitted Addendum: 02/01/2022 18:43 Co-signature as Attending Physician, Eduardo Smith MD I agree with the assessment and c molina plan of care. Signatures: Dispatcher [employer] EDEduardo Oro MD MD cha Marinas, Patrick, ALINE DEALMAKER pm1 Marianne Ramirez RN RN ap3 Kai Peace ab2
--- NOTE | 2022-01-30 19:59 | ER ---
Nurse's Notes [facility] Name: Francisco Miguel Age: 41 yrs Sex: Male : 1980 Arrival Date: 01/30/2022 Time: 13:36 Bed 23 Private MD: Diagnosis: Abdominal pain, unspecified Presentation: 01/30 14:12 Chief complaint: Patient states: he has been having intermittent chest pain. Patient ap3 reports the patient got worse after he ate spicy food on Saturday, and has been having a difficult time with reflux recently. Patient states the pain is a dull pain, in the epigastric area. Patient reports feeling relief when he sleeps sitting up. Coronavirus screen: At this time, the client does not indicate any symptoms associated with coronavirus-19. Ebola Screen: No symptoms or risks identified at this time. Initial Sepsis Screen: Does the patient meet any 2 criteria? No. Patient's initial sepsis screen is negative. Does the patient have a suspected source of infection? No. Patient's initial sepsis screen is negative. Risk Assessment: Do you want to hurt yourself or someone else? Patient reports no desire to harm self or others. Onset of symptoms was January 27, 2022. 14:12 Method Of Arrival: Ambulatory ap3 14:12 Acuity: LIZETH 3 ap3 Triage Assessment: 14:15 General: Appears in no apparent distress. Behavior is calm, cooperative, appropriate ap3 for age. Pain: Complains of pain in epigastric area, chest Pain does not radiate. Pain began gradually, Aggravated by eating. Neuro: Level of Consciousness is awake, alert, obeys commands, Oriented to person, place, time, situation, Appropriate for age Gait is steady, Speech is normal. Cardiovascular: Rhythm is sinus rhythm. Respiratory: Airway is patent Respiratory effort is even, unlabored, Respiratory pattern is regular, symmetrical. GI: Reports nausea. Historical: - Allergies: 14:14 No Known Allergies; ap3 - Home Meds: 14:14 meloxicam oral [Active]; ap3 - PMHx: 14:14 GERD; Hypertension; ap3 - Immunization history:: Client reports having NOT received the Covid vaccine. Flu vaccine is not up to date. - Social history:: Smoking status: Patient denies any tobacco usage or history of. Screenin:16 Abuse screen: Denies threats or abuse. Nutritional screening: No deficits noted. ap3 Tuberculosis screening: No symptoms or risk factors identified. Fall Risk None identified. Assessment: 17:23 General: Appears in no apparent distress. uncomfortable, Behavior is calm, cooperative, ab2 appropriate for age. Pain: Complains of pain in epigastric area Pain currently is 4 out of 10 on a pain scale. Pain: Pain does not radiate. Neuro: Level of Consciousness is awake, alert, obeys commands, Oriented to person, place, time, situation, Appropriate for age Ingredient Mixer are equal bilaterally Moves all extremities. Gait is steady, Speech is normal, Facial symmetry appears normal, Intact. Cardiovascular: Reports chest pain, Heart tones S1 S2 present Patient's skin is warm and dry. Rhythm is sinus rhythm. Respiratory: No deficits noted. Airway is patent Respiratory effort is even, unlabored, Respiratory pattern is regular, symmetrical, Breath sounds are clear bilaterally. GI: No deficits noted. No signs and/or symptoms were reported involving the gastrointestinal system. Abdomen is round non-distended, Bowel sounds present X 4 quads. Abd is soft Abd is non tender. : No deficits noted. No signs and/or symptoms were reported regarding the genitourinary system. EENT: No deficits noted. No signs and/or symptoms were reported regarding the EENT system. Derm: No deficits noted. Skin is intact, is healthy with good turgor, Skin is pink, warm \T\ dry. 18:28 Reassessment: Patient appears in no apparent distress at this time. Pt is resting ab2 comfortably. Pt denies any needs at this time. Awaiting disposition. Vital Signs: 14:12 BP 145 / 86; Pulse 75; Temp 98.7; Pulse Ox 100% ; Weight 83.91 kg; Height 5 ft. 10 in. ap3 (177.80 cm); 17:23 BP 140 / 84; Pulse 69; Resp 17; Pulse Ox 100% on R/A; Pain 4/10; ab2 18:28 BP 138 / 83; Pulse 72; Resp 17; Pulse Ox 99% on R/A; ab2 19:17 BP 129 / 85; Pulse 79; Resp 17; Pulse Ox 100% on R/A; ab2 20:09 BP 122 / 79; Pulse 69; Resp 17; Pulse Ox 100% on R/A; ab2 14:12 Body Mass Index 26.54 (83.91 kg, 177.80 cm) ap3 ED Course: 13:36 Patient arrived in ED. ds1 14:05 [facility] pm1 14:05 Eduardo Smith MD is Attending Physician. pm1 14:14 Triage completed. ap3 14:16 Arm band placed on right wrist. ap3 14:16 Patient maintains SpO2 saturation greater than 95% on room air. ap3 15:42 XRAY Chest (1 view) In Process Unspecified. EDMS 17:20 Inserted saline lock: 18 gauge in right antecubital area, using aseptic technique. ab2 Blood collected. 17:23 Kai Peace is Primary Nurse. ab2 17:23 Lipase Sent. ab2 17:23 Basic Metabolic Panel Sent. ab2 17:23 CBC with Diff Sent. ab2 17:23 LFT's Sent. ab2 17:23 Troponin HS Sent. ab2 17:24 No provider procedures requiring assistance completed. ab2 17:25 Patient has correct armband on for positive identification. Bed in low position. Call ab2 light in reach. Side rails up X2. manager monitoring on. Pulse ox on. NIBP on. 19:36 CT Abd/Pelvis - IV Contrast Only In Process Unspecified. EDMS 20:10 IV discontinued, intact, bleeding controlled, No redness/swelling at site. Pressure ab2 dressing applied. Administered Medications: 17:22 Drug: Pepcid (famotidine) 20 mg Route: IVP; Site: right antecubital; ab2 19:18 Follow up: Response: No adverse reaction ab2 20:08 Drug: GI Cocktail without - (Maalox Suspension 30 ml, Lidocaine Liquid 2 % 15 ab2 ml) Route: PO; 20:09 Follow up: Response: No adverse reaction ab2 Outcome: 19:58 Discharge ordered by . pm1 20:09 Discharged to home ambulatory. ab2 20:09 Condition: good 20:09 Discharge instructions given to patient, Instructed on discharge instructions, follow up and referral plans. medication usage, Demonstrated understanding of instructions, follow-up care, medications, Prescriptions given X 2. 20:10 Patient left the ED. ab2 Signatures: Dispatcher [employer] EDMT Lien Mehta ds1 Jadon Correa NP INTEGRATED CIRCUIT LAYOUT DESIGNER pm1 Marianne Ramirez, RN RN ap3 Kai Peace abIngrid
[2022-01-30] MEDS ORDERED: MAGNES/ALUMIN/SIMET 30ML UCUP ONE (20:09)
[2022-01-30] MEDS ORDERED: LIDOCAINE VISCOUS 2% SOLN 15 ML UDC ONE (20:09)
[2022-01-31 03:20] VITALS: TEMP 98.7
[2022-01-31 03:24] VITALS: O2SAT 100
[2022-01-31 03:26] VITALS: BP 122/79
--- NOTE | 2022-01-31 11:01 | EKG ---
Test Date: 2022-01-30 Test Time: 14:08:11 [employer] Vehicle Supervisor: ALP MEASUREMENT RESULTS: Intervals: Rate: 69 MO: 158 QRSD: 78 QT: 396 QTc: 424 [place]: P: 48 MO: 158 QRS: 60 T: 37 INTERPRETIVE STATEMENTS: Normal sinus rhythm Normal ECG No previous ECG available for comparison Electronically Signed On 01-31-22 10:57:27 CDT by Ramsey Hanna
== END 2022-01-30 20:10 | disposition home or self-care (01) ==
LOC: ER 13:30
DX: R10.13 Epigastric pain (principal); K21.9 Gastro-esophageal reflux disease without esophagitis; I10 Essential (primary) hypertension
CPT/HCPCS: 85025; 80048; 36415; 80076; 84484; 83690; 74177; 71045; Q9967; 93005; 96374; 99285

== ENCOUNTER 2022-11-17 08:52 | Emergency (ER) | payer SELFPAY ==
--- OUTSIDE RECORDS SUMMARY | 2022-11-17 08:56 | XMS REPORT | Continuity of Care Document ---
:1980 Author Organization [facility] t Address [address] [place] [address] Care Team Providers Name Role Phone RAHAT ASENCIO Primary Care Physician Unavailable HARRIETT BATES Attending Clinician Unavailable Harriett Bates MD Attending Clinician Unknown, Attending Attending Clinician Unavailable Provider, [facility] Attending Clinician Unavailable RADIOLOGY Attending Clinician Unavailable Radiology Attending Clinician Unavailable An Byers RN Attending Clinician Unavailable Rahat Asencio Attending Clinician Ruthy Rahman Attending Clinician Lab, Adc Fam Pob I Attending Clinician Unavailable Steffi Kang Attending Clinician STEFFI RANDOLPH Attending Clinician Unavailable Doctor Unassigned, [place] Attending Clinician Unavailable JUAN ANTONIO POLLARD Admitting Clinician Unavailable Payers Payer Name Policy Type Policy Number Effective Date Expiration Date S ource Problems Condition Condition Condition Status Onset Resolution Last Treating Co mments Source Name Details Category Date Date Treatment Clinician Date No known No known Disease Unive rs active active ity of problems problems [facility] Allergies, Adverse Reactions, Alerts Allergy Allergy Status Severity Reaction(s) Onset Inactive Treating Comm ents Source Name Type Date Date Clinician NO KNOWN Drug Active Univers ALLERGIE Class ity of S [facility] Social History Social Habit Start Date Stop Date Quantity Comments Source Exposure to 2022-10-19 2022-10-29 Not sure [facility] SARS-CoV-2 00:00:00 13:02:00 [place] [facility] (event[facility] Tobacco use and 2022-10-29 2022-10-29 Smokeless tobacco Un iversity of exposure 00:00:00 00:00:00 non-user [facility] Sex Assigned At [birth year] Universit y of 00:00:00 00:00:00 [facility] Smoking Status Start Date Stop Date Source Tobacco smoking consumption Univ ersity of [facility] unknown Branch Never smoked tobacco [facility] Medications Ordered Filled Start Stop Current Ordering Indication Dosage Frequency Signature Comments Components Source Medication Medication Date Date Medication? Clinician (SIG) Name Name ondansetron 2022- No [id number] 8mg Univers (ZOFRAN-ODT 10-29 ity of ) 21:00: 19:48 [place] disintegrat 00 :43 Medical ing tablet Branch 8 mg No known No No known Unive rs medications 10-29 medication it y of 13:51: s [facility] ondansetron Yes [id number] 8mg Take 2 Univers 4 mg 1-09 tablets by ity of disintegrat 00:00: mouth [place] ing tablet 00 every 8 Medica l (eight) Branch hours as needed for Nausea and Vomiting (N/V). benzonatate 2022-0 Yes [id number] 200mg Take 2 Univers 100 mg 1-09 capsules ity of capsule 00:00: by mouth [place] 00 every 8 Medical (eight) Branch hours as needed for Cough. ondansetron 2022-0 Yes [id number] 8mg Take 2 Univers 4 mg 1-09 tablets by ity of disintegrat 00:00: mouth [place] ing tablet 00 every 8 Medica l (eight) Branch hours as needed for Nausea and Vomiting (N/V). benzonatate 2022-0 Yes [id number] 200mg Take 2 Univers 100 mg 1-09 capsules ity of capsule 00:00: by mouth [place] 00 every 8 Medical (eight) Branch hours as needed for Cough. Vital Signs Vital Name Observation Time Observation Value Comments Source Systolic blood 2022-10-29 19:30:00 133 mm[Hg] Univer sity of pressure [facility] Diastolic blood 2022-10-29 19:30:00 89 mm[Hg] Unive rsity of pressure [facility] Heart rate 2022-10-29 19:30:00 74 /min [facility] Body temperature 2022-10-29 19:30:00 36.89 Erin Univ ersity of [facility] Respiratory rate 2022-10-29 19:30:00 18 /min [facility] height 2022-10-29 19:30:00 167.6 cm [facility] Body weight 2022-10-29 19:30:00 74.021 kg [facility] BMI 2022-10-29 19:30:00 26.34 kg/m2 [facility] Oxygen saturation in 2022-10-29 19:30:00 99 /min [facility] Arterial blood by [facility] Pulse oximetry Branch Procedures Procedure Date / Time Performing Clinician Source Performed PATIENT FINANCIAL Doctor Unassigned, [facility] RESPONSIBILITY - ALL [place] [facility] FORMS Encounters Start End Encounter Admission Attending Care Care Encounter Source Date/Time Date/Time Type Type Clinicians Facility Department ID 2022-10-29 2022-10-29 Outpatient R JANA [facility] [id number] Univers 12:40:00 13:53:49 HARRIETT [facility] 2022-10-29 2022-10-29 Urgent Harriett Bates [facility] [id number] Univers 12:40:00 13:00:00 Care Unknown, Attending HEALTH [id number] ity of [place] [id number] [place] YOHANNES?BLEA [phone] [address] MEDICAL OFFICE BUILDING 2022-10-29 2022-10-29 Letter Provider, [facility] [id number] Univers 00:00:00 00:00:00 (Out) Ang HEALTH [id number] it y of [facility]gent [facility] [id number] [place] YOHANNES?BLEA [phone] [address] MEDICAL OFFICE BUILDING 2022-02-01 2022-02-01 Outpatient R RADIOLOGY [facility] [id number] Univers 00:00:00 00:00:00 ity of [facility] 2022-01-24 2022-01-24 Outpatient R RADIOLOGY [facility] [id number] Univers 15:42:24 23:59:00 ity of [facility] 2022-01-24 2022-01-24 Hospital Radiology [facility] [id number] Univers 15:30:00 23:59:00 Encounter [place] [id number] ity of [id number] BLAINE [id number] [facility] [address] 2020-05-25 2020-05-25 Letter VICKY Byers [id number] Univers 00:00:00 00:00:00 (Out) An VANG [id number] it y of [facility] [id number] [place] [id number] [address] 2020-05-25 2020-05-25 Telephone VICKY Asencio [id number] Univers 00:00:00 00:00:00 Rahat VANG [id number] it y of [facility] [id number] [place] [phone] [address] 2020-05-24 2020-05-24 Telephone [place] [id number] Univers 00:00:00 00:00:00 CIERA Chou [id number] ity of [facility] [id number] [place] [phone] [address] 2020-05-23 2020-05-23 Laboratory Lab, Adc Fam Pob I [facility] [id number] Univers 12:55:16 13:15:16 Only Steffi Randolph [id number] ity of [place] [id number] [place] Antonia [phone] [facility] [address] 2020-05-23 2020-05-23 Outpatient R TOMASA [facility] [id number] Univers 11:40:00 11:40:00 STEFFI ity of [facility] 2020-05-23 2020-05-23 Letter Doctor VICKY [id number] Univers 00:00:00 00:00:00 (Out) Unassigned, CIERA [id number] ity of [facility] [id number] [place] [phone] [facility] [address] Branch Orders Doctor VICKY [id number] Univers 00:00:00 00:00:00 Only Unassigned, CIERA [id number] ity of [facility] [id number] [place] [phone] [facility] 009 Branch Results This patient has no known results.
[2022-11-17] MEDS ORDERED: NA CHLORIDE 0.9% 1,000 ML ONE (09:09)
[2022-11-17] MEDS ORDERED: FAMOTIDINE 20 MG/2 ML VIAL IV ONE (09:09)
[2022-11-17 09:17] LABS: Urine Blood Negative (Negative); Urine Glucose Negative (Negative); Urine Protein Negative (Negative); Urine Specific Gravity 1.025 (1.005-1.030)
[2022-11-17 09:37] LABS: Albumin 4.5 g/dL (3.4-5.0); Bilirubin Total 0.6 mg/dL (0.2-1.0); Potassium 3.8 mmol/L (3.5-5.1); Protein, Total 7.9 g/dL (6.4-8.2)
[2022-11-17 09:53] LABS: Absolute Lymphocytes (CBC) 1.9 K/uL (0.7-4.9); Lymphocytes % 35.1 % (15.3-44.8); MPV 8.3 fL (7.6-11.3); RBC Red Blood Cell Count 4.95 M/uL (4.33-5.43)
--- NOTE | 2022-11-17 10:24 | RAD REPORT ---
EXAM DESCRIPTION: CT - Abdomen Pelvis W Contrast - 11/17/2022 10:07 am CLINICAL HISTORY: Abdominal pain COMPARISON: January 2022 TECHNIQUE: Computed axial tomography of the abdomen pelvis was obtained. 100 cc Isovue-300 was admin istered intravenously. Oral contrast was not requested which limits evaluation of bowel and appendix All CT scans are performed using dose optimization technique as appropriate and may include automated exposure control or mA/KV adjustment according to patient size. FINDINGS: The liver, spleen, pancreas, adrenal and kidneys appear unremarkable. There is no evidence of diverticulitis. Normal appendix IMPRESSION: No acute abnormality is displayed.
--- NOTE | 2022-11-17 11:58 | ER ---
Nurse's Notes [facility] Name: Francisco Miguel Age: 41 yrs Sex: Male : 1980 Arrival Date: 11/17/2022 Time: 08:54 Bed 8 Private MD: Diagnosis: Abdominal pain, unspecified;Nausea Presentation: 11/17 09:04 Chief complaint: Patient states: Intermittent abdominal pain since last week, worse ph after eating, also reports N/V, some diarrhea, and chills, states that pain was initially in lower abdomen but this morning was in RUQ. Coronavirus screen: Vaccine status: Patient reports receiving the 2nd dose of the covid vaccine. Ebola Screen: No symptoms or risks identified at this time. Initial Sepsis Screen: Does the patient meet any 2 criteria? No. Patient's initial sepsis screen is negative. Does the patient have a suspected source of infection? No. Patient's initial sepsis screen is negative. Risk Assessment: Do you want to hurt yourself or someone else? Patient reports no desire to harm self or others. Onset of symptoms was November 17, 2022. 09:04 Method Of Arrival: Ambulatory ph 09:04 Acuity: LIZETH 3 ph Triage Assessment: 09:10 General: Appears in no apparent distress. comfortable, well groomed, Behavior is calm, ph cooperative, appropriate for age, Reports chills for 0-12 hours. Pain: Complains of pain in right upper quadrant. Neuro: Level of Consciousness is awake, alert, obeys commands, Oriented to person, place, time, situation. Cardiovascular: Capillary refill < 3 seconds in bilateral fingers Patient's skin is warm and dry. Respiratory: Airway is patent Respiratory effort is even, unlabored. GI: Abdomen is non-distended, Reports upper abdominal pain, diarrhea, nausea, vomiting. Derm: Skin is healthy with good turgor, Skin is pink, warm \T\ dry. Musculoskeletal: Circulation, motion, and sensation intact. Range of motion: intact in all extremities. Historical: - Allergies: 09:10 No Known Allergies; ph - PMHx: 09:10 GERD; Hypertension; ph - Immunization history:: Adult Immunizations unknown. - Social history:: Smoking status: Patient denies any tobacco usage or history of. Screenin:11 [facility] ED Fall Risk Assessment (Adult) History of falling in the last 3 months, ph including since admission No falls in past 3 months (0 pts) Confusion or Disorientation No (0 pts) Intoxicated or Sedated No (0 pts) Impaired Gait No (0 pts) Mobility Assist Device Used No (0 pt) Altered Elimination No (0 pt) Score/Fall Risk Level 0 - 2 = Low Risk Oriented to surroundings, Maintained a safe environment, Hourly rounding (assess needs \T\ fall precautionary measures) done. Abuse screen: Denies threats or abuse. Denies injuries from another. Nutritional screening: No deficits noted. Tuberculosis screening: No symptoms or risk factors identified. Assessment: 09:12 General: SEE TRIAGE ASSESSMENT. ph 09:56 Reassessment: Pt taken to CT. ph 11:35 Reassessment: Patient appears in no apparent distress at this time. Patient and/or hb family updated on plan of care and expected duration. Pain level reassessed. Patient is alert, oriented x 3, equal unlabored respirations, skin warm/dry/pink. 12:45 Reassessment: Patient appears in no apparent distress at this time. Patient and/or ph family updated on plan of care and expected duration. Pain level reassessed. Patient is alert, oriented x 3, equal unlabored respirations, skin warm/dry/pink. Vital Signs: 09:04 BP 154 / 91; Pulse 70; Resp 16; Temp 98.8; Pulse Ox 99% on R/A; Weight 75.75 kg; Height ph 5 ft. 6 in. (167.64 cm); 09:24 BP 162 / 88; Pulse 68; Resp 16; Pulse Ox 99% on R/A; hb 10:45 BP 141 / 83; Pulse 66; Resp 16; Pulse Ox 100% on R/A; hb 12:00 BP 139 / 78; Pulse 67; Resp 18; Temp 98.0; Pulse Ox 99% on R/A; ph 09:04 Body Mass Index 26.95 (75.75 kg, 167.64 cm) ph ED Course: 08:54 Patient arrived in ED. rg4 08:55 Eda Paiz FNP-C is [facility]. snw 08:55 Mukul Early MD is Attending Physician. snw 08:57 Brenda Maria RN is Primary Nurse. ph 09:10 Triage completed. ph 09:10 Arm band placed on Patient placed in an exam room, on a stretcher. ph 09:11 Patient has correct armband on for positive identification. Placed in gown. Bed in low ph position. Call light in reach. Side rails up X 1. Pulse ox on. NIBP on. Door closed. Noise minimized. 09:12 Inserted saline lock: 20 gauge in right antecubital area, using aseptic technique. hb Blood collected. 09:15 Urine collected: clean catch specimen, cloudy. mm9 10:09 CT Abd/Pelvis - IV Contrast Only In Process Unspecified. EDMS 12:12 US Abdomen Limited In Process Unspecified. EDMS 12:46 No provider procedures requiring assistance completed. IV discontinued, intact, ph bleeding controlled, No redness/swelling at site. Pressure dressing applied. Administered Medications: 09:13 Drug: NS 0.9% 1000 ml Route: IV; Rate: 1 bolus; Site: right antecubital; hb 12:46 Follow up: Response: No adverse reaction; IV Status: Completed infusion; IV Intake: ph 1000ml 09:13 Drug: Pepcid (famotidine) 20 mg Route: IVP; Site: right antecubital; hb 12:46 Follow up: Response: No adverse reaction ph Medication: 09:12 VIS not applicable for this client. ph Intake: 12:46 IV: 1000ml; Total: 1000ml. ph Outcome: 11:58 Discharge ordered by . snw 12:46 Discharged to home ambulatory. ph 12:46 Condition: good 12:46 Discharge instructions given to patient, Instructed on discharge instructions, follow up and referral plans. medication usage, Demonstrated understanding of instructions, follow-up care, medications, Prescriptions given X 2. 12:46 Patient left the ED. ph Signatures: Dispatcher [employer] EDMS Eda Paiz, MANAGER TRAVEL-C MANAGER TRAVEL-Csnw Brenda Maria RN RN ph Cindi Pablo, Narcisa Martin RN rg4 Namrata Velasquez mm9
--- NOTE | 2022-11-17 11:58 | EDPHYS ---
Physician Documentation [facility] Name: Francisco Miguel Age: 41 yrs Sex: Male : 1980 Arrival Date: 11/17/2022 Time: 08:54 Bed 8 Private MD: ED Physician Mukul Early HPI: 11/17 09:27 This 41 yrs old Male presents to ER via Ambulatory with complaints of snw Abdominal Pain. 09:27 The patient presents with abdominal pain in the upper abdomen, in the lower abdomen. snw Onset: The symptoms/episode began/occurred acutely. The symptoms do not radiate. Associated signs and symptoms: Pertinent positives: nausea. The symptoms are described as crampy. Modifying factors: The symptoms are alleviated by nothing. Severity of pain: At its worst the pain was moderate in the emergency department the pain has resolved. The patient has experienced similar episodes in the past, chronically. Historical: - Allergies: 09:10 No Known Allergies; ph - PMHx: 09:10 GERD; Hypertension; ph - Immunization history:: Adult Immunizations unknown. - Social history:: Smoking status: Patient denies any tobacco usage or history of. ROS: 09:26 Constitutional: Negative for fever, chills, and weight loss, Eyes: Negative for injury, snw pain, redness, and discharge, ENT: Negative for injury, pain, and discharge, Neck: Negative for injury, pain, and swelling, Cardiovascular: Negative for chest pain, palpitations, and edema, Respiratory: Negative for shortness of breath, cough, wheezing, and pleuritic chest pain, Back: Negative for injury and pain, : Negative for injury, bleeding, discharge, and swelling, MS/Extremity: Negative for injury and deformity, Skin: Negative for injury, rash, and discoloration, Neuro: Negative for headache, weakness, numbness, tingling, and seizure. 09:26 Abdomen/GI: Positive for abdominal pain, of the right upper quadrant, left upper quadrant, right lower quadrant and left lower quadrant. 09:26 Abdomen/GI: Positive for nausea. Exam: 09:26 Constitutional: This is a well developed, well nourished patient who is awake, alert, snw and in no acute distress. Head/Face: Normocephalic, atraumatic. Eyes: Pupils equal round and reactive to light, extra-ocular motions intact. Lids and lashes normal. Conjunctiva and sclera are non-icteric and not injected. Cornea within normal limits. Periorbital areas with no swelling, redness, or edema. ENT: Nares patent. No nasal discharge, no septal abnormalities noted. Tympanic membranes are normal and external auditory canals are clear. Oropharynx with no redness, swelling, or masses, exudates, or evidence of obstruction, uvula midline. Mucous membranes moist. Neck: Trachea midline, no thyromegaly or masses palpated, and no cervical lymphadenopathy. Supple, full range of motion without nuchal rigidity, or vertebral point tenderness. No Meningismus. Chest/axilla: Normal chest wall appearance and motion. Nontender with no deformity. No lesions are appreciated. Cardiovascular: Regular rate and rhythm with a normal S1 and S2. No gallops, murmurs, or rubs. Normal PMI, no JVD. No pulse deficits. Respiratory: Lungs have equal breath sounds bilaterally, clear to auscultation and percussion. No rales, rhonchi or wheezes noted. No increased work of breathing, no retractions or nasal flaring. Back: No spinal tenderness. No costovertebral tenderness. Full range of motion. Skin: Warm, dry with normal turgor. Normal color with no rashes, no lesions, and no evidence of cellulitis. MS/ Extremity: Pulses equal, no cyanosis. Neurovascular intact. Full, normal range of motion. Neuro: Awake and alert, GCS 15, oriented to person, place, time, and situation. Cranial nerves II-XII grossly intact. Motor strength 5/5 in all extremities. Sensory grossly intact. Cerebellar exam normal. Normal gait. Psych: Awake, alert, with orientation to person, place and time. Behavior, mood, and affect are within normal limits. 09:26 Abdomen/GI: Inspection: abdomen appears normal, Bowel sounds: normal, Palpation: mild abdominal tenderness, in all quadrants. Vital Signs: 09:04 BP 154 / 91; Pulse 70; Resp 16; Temp 98.8; Pulse Ox 99% on R/A; Weight 75.75 kg; Height ph 5 ft. 6 in. (167.64 cm); 09:24 BP 162 / 88; Pulse 68; Resp 16; Pulse Ox 99% on R/A; hb 10:45 BP 141 / 83; Pulse 66; Resp 16; Pulse Ox 100% on R/A; hb 12:00 BP 139 / 78; Pulse 67; Resp 18; Temp 98.0; Pulse Ox 99% on R/A; ph 09:04 Body Mass Index 26.95 (75.75 kg, 167.64 cm) ph MDM: 09:01 Patient medically screened. snw 11:59 Differential diagnosis: cholecystitis, Cholelithiasis, diverticulitis, gastritis, snw gastroesophageal reflux disease, Perf. Gastric Ulcer. Data reviewed: vital signs, nurses notes, lab test result(s), radiologic studies. Counseling: I had a detailed discussion with the patient and/or guardian regarding: the historical points, exam findings, and any diagnostic results supporting the discharge/admit diagnosis, the presence of at least one elevated blood pressure reading (>120/80) during this emergency department visit, lab results, radiology results, the need for outpatient follow up, for definitive care, a collator operator, to return to the emergency department if symptoms worsen or persist or if there are any questions or concerns that arise at home. Special discussion: I have referred the patient to see his PCP for further evaluation of high blood pressure. Based on the history and exam findings, there is no indication for further emergent testing or inpatient evaluation. I discussed with the patient/guardian the need to see the collator operator for further evaluation of the symptoms. I discussed with the patient/guardian the need to see the primary care provider for further evaluation of the symptoms. 11/17 09:03 Order name: CBC with Diff; Complete Time: 09:56 snw 11/17 09:03 Order name: CMP; Complete Time: 09:56 w 11/17 09:03 Order name: Lipase; Complete Time: 09:56 snw 11/17 09:03 Order name: CT Abd/Pelvis - IV Contrast Only; Complete Time: 10:52 snw 11/17 09:17 Order name: Urine Dipstick-Ancillary; Complete Time: 09:24 EDMS 11/17 09:24 Order name: US Abdomen Limited; Complete Time: 12:23 snw 11/17 09:03 Order name: IV Saline Lock; Complete Time: 09:12 snw 11/17 09:03 Order name: Labs collected and sent; Complete Time: 09:12 w 11/17 09:03 Order name: Urine Dipstick-Ancillary (obtain specimen); Complete Time: 09:12 snw Administered Medications: 09:13 Drug: NS 0.9% 1000 ml Route: IV; Rate: 1 bolus; Site: right antecubital; hb 12:46 Follow up: Response: No adverse reaction; IV Status: Completed infusion; IV Intake: ph 1000ml 09:13 Drug: Pepcid (famotidine) 20 mg Route: IVP; Site: right antecubital; hb 12:46 Follow up: Response: No adverse reaction ph Disposition: 14:14 Co-signature as Attending Physician, Muukl Early MD I agree with the assessment and kdr plan of care. Disposition Summary: 11/17/22 11:58 Discharge Ordered Location: Home snw Condition: Stable snw Diagnosis - Abdominal pain, unspecified snw - Nausea snw Followup: snw - With: Emergency Department - When: As needed - Reason: Worsening of condition Followup: snw - With: Private Physician - When: 5 - 6 days - Reason: Recheck today's complaints, Continuance of care, Re-evaluation by your physician Discharge Instructions: - Discharge Summary Sheet snw - Abdominal Pain, Adult snw - Nausea, Adult snw - [place] Diet snw Forms: - Medication Reconciliation Form snw - Thank You Letter snw - Antibiotic Education snw - Prescription Opioid Use snw - Work release form snw Prescriptions: - promethazine 25 mg Oral Tablet - take 1 tablet by ORAL route every 6 hours As needed; 20 tablet; Refills: 0, snw Product Selection Permitted - dicyclomine 20 mg Oral Tablet - take 1 tablet by ORAL route 3 times per day; 30 tablet; Refills: 0, Product snw Selection Permitted Signatures: Dispatcher [employer] EDMukul Bernard MD MD kdr Waters, Shelly, FNP-C CASH APPLICATIONS COORDINATOR-Charlaw Brenda Maria RN RN ph Cindi Pablo, RASHAUN RN
--- NOTE | 2022-11-17 12:21 | RAD REPORT ---
EXAM DESCRIPTION: US - Abdomen Exam Limited - 11/17/2022 12:11 pm CLINICAL HISTORY: Abdominal pain. COMPARISON: 2018 FINDINGS: The gallbladder wall is not thickened. A gallstone is not seen. The biliary tree is normal caliber. IMPRESSION: Unremarkable gallbladder ultrasound.
[2022-11-17 13:13] VITALS: BP 139/78; TEMP 98; O2SAT 99
== END 2022-11-17 12:46 | disposition home or self-care (01) ==
LOC: ER 08:52
DX: R10.9 Unspecified abdominal pain (principal); R11.0 Nausea
CPT/HCPCS: 36415; 74177; 76705; 80053; 81003; 83690; 85025; 96361; 96374; 99284; J7030; Q9967